=== PATIENT | female | born 1965 ===

== ENCOUNTER 2022-10-14 06:28 | Outpatient (REF) | payer OTHER, SELFPAY ==
[2022-10-14 07:58] LABS: Alanine Aminotransferase 12 U/L (0-31); Alkaline Phosphatase 72 U/L (39-117); Anion Gap 12 (12-20); Aspartate Amino Transferase 11 U/L (5-31); Bilirubin Total 0.6 mg/dL (0.0-1.0); Blood Urea Nitrogen 15 mg/dL (9-16); Calcium 9.4 mg/dL (8.4-10.2); Carbon Dioxide 25 mmol/L (22-29); Chloride 108 mmol/L (96-108); Cholesterol 270 mg/dL; Estimated Glomerular Filt Rate > 60; Glucose Fasting 91 mg/dL (60-99); HDL Cholesterol 52 mg/dL; LDL Cholesterol Calculated 197 mg/dl; Potassium 4.6 mmol/L (3.3-5.1); Sodium 140 mmol/L (135-145); Total Protein 6.5 g/dL (6.5-8.0); Triglycerides 109 mg/dL
[2022-10-14 08:03] LABS: Appearance Urine Cloudy; Color Urine Yellow; Glucose Urine UA Negative (Negative); Leukocyte Esterase Urine Small (1+) (Negative); Nitrite Urine Negative (Negative); PH 5.5 (5.0-9.0); UMIC TRIGGER UA YES; Urine Blood Trace (Negative); Urine Ketones Negative (Negative); Urine Protein Negative (Neg-Trace)
[2022-10-14 08:12] LABS: Bacteria Urine 2+ (None Seen); Hyaline Casts Urine 0-2 /LPF (0-2); RBC Urine 0-2 /HPF (0-2); WBC Urine 0-5 /HPF (0-5)
[2022-10-14 08:53] LABS: Microalbum/Creatinine Ratio Ur 4.4 ug/mg cr
[2022-10-14 09:01] LABS: TSH reflex Free T4 1.78 uIU/mL (0.32-4.0)
== END 2022-10-14 06:29 | disposition home or self-care (01) ==
LOC: HO.XRAY 06:28
PROVIDERS: PCP Family Medicine; Visit Provider Family Medicine
DX: Z00.00 Encounter for general adult medical examination without abnormal findings (principal); I10 Essential (primary) hypertension
CPT/HCPCS: 36415; 80053; 80061; 81001; 81003; 82043; 84443

== ENCOUNTER 2022-11-26 08:43 | Outpatient (REF) | payer OTHER, SELFPAY ==
--- NOTE | ~2022-11-26 | MM_ITS ---
EXAMINATION: MM SCREENING DIGITAL BREAST TOMOSYNTHESIS, BILATERAL CLINICAL INFORMATION: Screening. Asymptomatic. The lifetime risk of breast cancer based on the Tyrer-Cuzick Model is 14%. COMPARISON: Mammography: 08/18/2012, 06/08/2011 TECHNIQUE: Digital breast tomosynthesis is performed in both the craniocaudal and mediolateral oblique views along with computer-aided detection (CAD). Synthesized 2D images are generated from the tomosynthesis. FINDINGS: The breasts are heterogeneously dense, which may obscure small masses (ACR BI-RADS breast composition Category c). This tissue composition borders on extremely dense in the upper outer quadrants. There is no developing density or architectural abnormality. Parenchymal pattern is similar to prior studies. Some minor asymmetry posterior upper left breast on MLO view is stable. There is no significant mass. The axilla and skin contours are unremarkable. No abnormal calcifications on the left. Right breast has scattered regional calcifications retroareolar and upper outer quadrant, questionably increased since 2013. Patient will be recalled for magnification views to fully characterize. MM/MM tomosynthesis screening BI IMPRESSION: Right: -Regional calcifications retroareolar and upper outer quadrant, questionably increased from remote prior exam 2012. Left: -No mammographic evidence of malignancy. ASSESSMENT: BI-RADS 0: Incomplete - Need Additional Imaging Evaluation RECOMMENDATION: 1. Additional views right breast: Magnification CC retroareolar and outer; magnification ML right areola and upper). 2. Radiology department staff will contact the patient for additional imaging. This patient's information was entered into a reminder system with a target due date for their next mammogram.
== END 2022-11-26 08:44 | disposition home or self-care (01) ==
LOC: HO.MAMMO 08:43
PROVIDERS: Visit Provider Family Medicine
DX: Z12.31 Encounter for screening mammogram for malignant neoplasm of breast (principal)
CPT/HCPCS: 77063; 77067

== ENCOUNTER 2022-12-03 14:13 | Outpatient (REF) | payer OTHER, SELFPAY ==
--- NOTE | ~2022-12-03 | MM_ITS ---
EXAMINATION: MM DIAGNOSTIC DIGITAL MAMMOGRAPHY, RIGHT CLINICAL INFORMATION: Question increasing calcifications. COMPARISON: Mammography: 11/26/2022 and studies dating back to 09/15/2006. TECHNIQUE: Digital mammography is performed in the following views: Spot magnification views of the right breast in craniocaudal and 90 degree mediolateral views. FINDINGS: The breasts are extremely dense, which lowers the sensitivity of mammography (ACR BI-RADS breast composition Category d). There is multiplicity of scattered and grouped calcifications within the upper outer aspect of the right breast which appears similar to previous studies but difficult to directly compare due to lack of previous magnification views. Recommend 6 month follow up bilateral mammography with magnification views. Results are discussed with the patient at time of visit. MM/MM added views RT IMPRESSION: Probably stable right breast calcifications for six-month follow up study. ASSESSMENT: BI-RADS 3: Probably Benign. RECOMMENDATION: Diagnostic mammography in 6 months. This patient's information was entered into a reminder system with a target due date for their next mammogram.
== END 2022-12-03 14:14 | disposition home or self-care (01) ==
LOC: HO.MAMMO 14:13
PROVIDERS: PCP Family Medicine; Visit Provider Family Medicine
DX: R92.1 Mammographic calcification found on diagnostic imaging of breast (principal)
CPT/HCPCS: 77065

== ENCOUNTER 2023-03-01 10:47 | Outpatient (REF) | payer OTHER, SELFPAY ==
[2023-03-01 19:15] LABS: CT PCR NOT DETECTED (Not Detect.); NG PCR NOT DETECTED (Not Detect.)
[2023-03-04 02:59] LABS: HPV mRNA E6/E7 rflx Not Detected (Not Detected)
== END 2023-03-01 10:48 | disposition home or self-care (01) ==
LOC: HO.LNP 10:47
PROVIDERS: Visit Provider Advanced Practice Midwife
DX: Z01.419 Encounter for gynecological examination (general) (routine) without abnormal findings (principal); Z11.51 Encounter for screening for human papillomavirus (HPV); Z20.2 Contact with and (suspected) exposure to infections with a predominantly sexual mode of transmission; N84.1 Polyp of cervix uteri
CPT/HCPCS: 0353U; 87624; 88142; 99386

== ENCOUNTER 2023-03-01 10:47 | Outpatient (AMB) | payer OTHER, SELFPAY ==
--- NOTE | 2023-03-01 10:50 | A.OFFVIS_ITS ---
Intake Vital Signs 03/01/23 10:51 Height 5 ft 6 in Weight 171 lb BMI 27.6 BP 114/80 Intake Visit Reasons: New patient Annual Intake Note: Last pap 2019 normal history per patient The patient agreed to use of a medical record coder during this encounter. Scribed for ARGENIS Portillo by Haily Ferrer, medical record coder, on 03/01/2023 at 11:11 am EST. 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 No menses since her ablation years ago. Patient admits she tries to eat a healthy diet including Calcium and Vitamin D. She stays active with exercise. Currently sexually active. Denies vaginal itching and irritation. STD screening offered; she accepts. Denies family hx of colon and ovarian cancer. Reports getting follow up with breast care. Last pap smear 2019 per pt. Last mammogram 11/26/22. UTD with cologaurd. [facility] Medical History (Updated 03/01/23 @ 11:38 by Haily Ferrer) BRCA gene mutation negative in female Cervical polyp Potential exposure to STD High cholesterol Degenerative arthritis No pertinent past medical history Surgical History H/O foot surgery History of endometrial ablation Family History (Updated 03/01/23 @ 11:14 by Haily Ferrer) Mother Hypertension Breast cancer, Onset Age: 50 Maternal Grandmother High cholesterol Thyroid disorder Paternal Grandfather Diabetes Social History Household Members: Family Housing: House Alcohol intake: current Alcohol intake frequency: holidays/special occasions only Patient Tobacco Use Status: Former Tobacco user Tobacco use type: Cigarette e-Cigarette/Vaping Use: Never Used service: No Current occupational status: employed Sexual orientation: Straight/Heterosexual Gender identity: Female Female Reproductive History Menstrual Menopause type: natural Total pregnancies: 4 Full term: 3 Number of Living Children: 3 Ab spontaneous: 1 Date of Mammogram: 11/26/22 (Birad 0) Physical Exam Vital Signs: Last Vital Signs BP 114/80 03/01/23 10:51 BMI result Body Mass Index 27.6 Const General: cooperative, healthy appearing, no acute distress, well developed and alert Orientation/consciousness: patient oriented x3 HEENT Head: Yes normal to inspection Eyes General: appearance normal, both eyes and all related structures Neck Neck: Yes normal visual inspection Thyroid: Thyroid normal Chest Chest palpation & inspection: normal inspection of the chest Breast/axilla inspection: normal inspection of the breasts (no puckering, dimpling, peau de orange, retraction, discharge, masses) Breast/axilla palpation: normal palpation of the breasts Resp Effort & Inspection: normal respiratory effort GI Inspection: Yes normal to inspection Palpation (GI): Soft to palpation (to palpation) Rectal Exam - Female: deferred General: Yes bladder normal to inspection External Female Exam: normal external appearance and normal appearance of the urethra Speculum Exam - Vagina: normal appearance of the vagina, normal palpation and vagina atrophic Speculum Exam - Cervix: normal palpation and Other cervical findings present (cervical polyp palpable; bled slightly with pap) Bimanual exam- vagina & uterus: normal palpation and normal palpation Bimanual Exam- Adnexa, other: normal adnexae and no masses Skin General skin exam: no rashes or lesions noted Neuro General: patient oriented x3 Cognition (Neuro): normal cognition Extrem General: Yes normal to inspection Psych Attitude: cooperative Thought process: Normal thought process present Assessment & Plan Assessment & Plan (1) Encounter for well woman exam: Code(s): Z01.419 - Encounter for gynecological examination (general) (routine) without abnormal findings Plan: Discussed: Current recommendations for pap smears per ASCCP guidelines. Breast awareness and periodic self breast exams. Encouraged yearly mammograms. Maintaining a healthy lifestyle including a well balanced diet including Calcium and Vitamin D and routine exercise. Encouraged to use condoms for STD prevention. Encouraged patient to sign up for patient portal. Contact office with any PMB. All of her questions and concerns were addressed to the best of my ability. RTO in 1 year for AG. (2) Potential exposure to STD: Code(s): Z20.2 - Contact with and (suspected) exposure to infections with a predominantly sexual mode of transmission Plan: BV testing and GC/CT panel done today. Await results and treat accordingly. (3) Cervical polyp: Code(s): N84.1 - Polyp of cervix uteri Plan: Benign growth of tissue which grows in cervical canal. Recommended scheduling polypectomy so it does not develop any abnormal tissue. Orders: Orders CT NG by PCR Today Z20.2 - Contact with and (suspected) exposure to infections with a predominantly sexual mode of transmission Pap Smear Today Z01.419 - Encounter for gynecological examination (general) (routine) without abnormal findings Coding Level of Care Code New Pt Prev Care 40-64y(51769) Diagnoses Encounter for well woman exam Z01.419 Potential exposure to STD Z20.2 Cervical polyp N84.1
[2023-03-01 10:51] VITALS: BP 114/80; BMI 27.6
== END 2023-03-01 11:31 | disposition home or self-care (01) ==
PROVIDERS: Visit Provider Advanced Practice Midwife
DX: Z01.419 Encounter for gynecological examination (general) (routine) without abnormal findings (principal); Z20.2 Contact with and (suspected) exposure to infections with a predominantly sexual mode of transmission; N84.1 Polyp of cervix uteri
CPT/HCPCS: 99386

== ENCOUNTER 2023-03-03 11:07 | Outpatient (AMB) | payer OTHER, SELFPAY ==
[2023-03-03 11:13] VITALS: BP 124/84; BMI 27.6
--- NOTE | 2023-03-03 11:13 | A.OFFVIS_ITS ---
Intake Vital Signs 03/03/23 11:13 Height 5 ft 6 in Weight 171 lb BMI 27.6 BP 124/84 Intake Visit Reasons: Polypectomy/45 Intake Note: The patient agreed to use of a medical service technician during this encounter. Scribed for ARGENIS Portillo by Haily Ferrer medical service technician, on 03/03/2023 at 11:18 am EST. Kier Drier: Kier Drier Present ([place]) Allergies Penicillins Allergy (Mild, Verified 03/03/23 11:14) Hives doxycycline [DOXYCYCLINE] Allergy (Unknown, Verified 03/03/23 11:14) SWELLING Post menopausal: Yes HPI HPI Comments History of Present Illness Details She presents for polypectomy due to cervical polyp. See procedure note. [facility] Medical History BRCA gene mutation negative in female Cervical polyp Potential exposure to STD High cholesterol Degenerative arthritis No pertinent past medical history Surgical History H/O foot surgery History of endometrial ablation Family History Mother Hypertension Breast cancer, Onset Age: 50 Maternal Grandmother High cholesterol Thyroid disorder Paternal Grandfather Diabetes Social History Household Members: Family Housing: House Alcohol intake: current Alcohol intake frequency: holidays/special occasions only Patient Tobacco Use Status: Former Tobacco user Tobacco use type: Cigarette e-Cigarette/Vaping Use: Never Used service: No Current occupational status: employed Sexual orientation: Straight/Heterosexual Gender identity: Female Physical Exam Vital Signs: Last Vital Signs BP 124/84 03/03/23 11:13 BMI result Body Mass Index 27.6 Const General: cooperative, healthy appearing, comfortable, no acute distress, well developed, alert and awake Other: cervical polyp located at right side of cervix External Female Exam: normal external appearance and normal appearance of the urethra Speculum Exam - Vagina: normal appearance of the vagina and normal vaginal di scharge Office Procedures Cervical Polypectomy Details Details: HPI She presents for polypectomy due to cervical polyp. She was counseled regarding anticipatory guidance for the procedure including bleeding, pain, infection and scarring. She was consented for the procedure, and the consent forms were signed. She is agreeable to have the procedure today. All questions were answered. She denies any allergy to shellfish. Procedure The patient was placed in the dorsal lithotomy position and a sterile speculum was inserted. The procedure was completed under aseptic technique. The cervix was cleansed with a Betadine solution x 3 swabs. A small polyp was visualized at 6 o'clock and removed with Wiliam clamp by grasping base and twisting off. Minimal bleeding was observed. Patient tolerated procedure well. Removal of polyp performed today with no complications. Plan Instructions given to call if temp >100.4, flu like sx, abd pain, vaginal odor or heavy vaginal bleeding. No intimacy for 7 days until all bleeding stopping. Follow up pending results. CPT: 47281 - Cervical Polypectomy Assessment & Plan Assessment & Plan (1) Cervical polyp: Code(s): N84.1 - Polyp of cervix uteri Plan: Polypectomy done today. See procedure note. Orders: Orders Surgical Today N84.1 - Polyp of cervix uteri Coding Level of Care Code Procedure Only Diagnoses Cervical polyp N84.1 CPT Codes Details - CPT: 48558 - Cervical Polypectomy ([id number])
== END 2023-03-03 11:41 | disposition home or self-care (01) ==
PROVIDERS: PCP Family Medicine; Visit Provider Advanced Practice Midwife
DX: N84.1 Polyp of cervix uteri (principal)
CPT/HCPCS: 57500

== ENCOUNTER 2023-03-03 11:07 | Outpatient (REF) | payer OTHER, SELFPAY | END 2023-03-03 11:08 | disposition home or self-care (01) | LOC: HO.LAB 11:07 | PROVIDERS: PCP Family Medicine; Visit Provider Advanced Practice Midwife | DX: N84.1 Polyp of cervix uteri (principal) | CPT/HCPCS: 57500; 88305 ==

== ENCOUNTER 2023-06-14 10:53 | Outpatient (REF) | payer OTHER, SELFPAY ==
--- NOTE | ~2023-06-14 | MM_ITS ---
EXAMINATION: MM DIAGNOSTIC DIGITAL MAMMOGRAPHY, RIGHT CLINICAL INFORMATION: 6 month follow-up calcifications right breast, magnification views. COMPARISON: Mammography: Magnification views 12/03/2022. Mammography 11/26/2022. Otherwise, no prior magnification views are available for direct comparison. TECHNIQUE: Digital mammography is performed in the following views: Right CC and ML 2-D magnification views. FINDINGS: The breasts are extremely dense, which lowers the sensitivity of mammography (ACR BI-RADS breast composition Category d). There are scattered grouped rounded and smudgy calcifications without significant change from prior magnification views. Distribution is regional without evidence of suspicious distribution. There are no linear or branching forms. These do not appear changed in number nor morphology since 6 months prior. These remain probably benign. Recommend six-month interval diagnostic right mammography to include spot magnification views when the patient is due for bilateral mammography. MM/MM diagnostic mammo unilat RT IMPRESSION: There are no significant changes from prior study. 6 month interval right magnification views recommended to ensure stability. ASSESSMENT: BI-RADS BI-RADS 3 - Probably benign finding(s) - 6 month follow-up suggested RECOMMENDATION: 6 Month F/U This patient's information was entered into a reminder system with a target due date for their next mammogram.
== END 2023-06-14 10:54 | disposition home or self-care (01) ==
LOC: HO.MAMMO 10:53
PROVIDERS: PCP Family Medicine; Visit Provider Family Medicine
DX: R92.1 Mammographic calcification found on diagnostic imaging of breast (principal)
CPT/HCPCS: 77062; 77065

== ENCOUNTER → 2023-06-14 11:00 | Outpatient (BNV) | payer OTHER, SELFPAY | PROVIDERS: PCP Family Medicine; Visit Provider Radiology Diagnostic Radiology | DX: R92.1 Mammographic calcification found on diagnostic imaging of breast (principal) | CPT/HCPCS: 77065 ==

== ENCOUNTER 2023-12-26 10:54 | Outpatient (REF) | payer OTHER, SELFPAY ==
--- NOTE | ~2023-12-26 | MM_ITS ---
EXAMINATION: MM DIAGNOSTIC DIGITAL BREAST TOMOSYNTHESIS, BILATERAL CLINICAL INFORMATION: 6 month follow-up (second) for regional right breast calcifications upper outer quadrant and retroareolar. Patient due for bilateral screening. COMPARISON: Mammography: 06/14/2023, 12/03/2022, 11/26/2022 (BI-RADS 0), 08/18/2012, 06/08/2011; Additional comparison is made with more recent prior mammography from [place] dated 11/25/2018, 10/15/2017, and 10/02/2016. TECHNIQUE: Digital breast tomosynthesis is performed in both the craniocaudal and mediolateral oblique views along with computer-aided detection (CAD). Synthesized 2D images are generated from the tomosynthesis. In addition, 2-D spot magnification right CC and ML views were also obtained. FINDINGS: The breasts are heterogeneously dense, which may obscure small masses (ACR BI-RADS breast composition Category c). There are stable loosely grouped regional calcifications in the upper outer right breast and retroareolar region. There is been no significant interval change when compared with 12/03/2022 magnification views. No suspicious morphology is evident (i.e. branching, casting, linear forms). These remain probably benign and one-year interval follow-up recommended with standard magnification views. Otherwise, there are no suspicious masses, suspicious grouped calcifications, or areas of architectural distortion in either breast. The parenchymal pattern is stable from prior exams. There is no skin or axillary abnormality. MM/MM tomosynthesis diagnostic BI IMPRESSION: -There are no findings in either breast suspicious for malignancy. -There are stable regional calcifications without suspicious morphology in the upper outer and retroareolar right breast, with no changes from prior exams. These remain probably benign, and 1 year interval follow-up recommended to include standard magnification views. ASSESSMENT: BI-RADS BI-RADS 3 - Probably benign finding(s) - 12 month follow-up suggested RECOMMENDATION: 12 month diagnostic follow up Results were provided to the patient at time of visit by the technologist. This patient's information was entered into a reminder system with a target due date for their next mammogram.
== END 2023-12-26 10:55 | disposition home or self-care (01) ==
LOC: HO.MAMMO 10:54
PROVIDERS: PCP Family Medicine; Visit Provider Family Medicine
DX: R92.1 Mammographic calcification found on diagnostic imaging of breast (principal)
CPT/HCPCS: 77062; 77066

== ENCOUNTER → 2023-12-26 11:00 | Outpatient (BNV) | payer OTHER, SELFPAY | PROVIDERS: PCP Family Medicine; Visit Provider Radiology Diagnostic Radiology | DX: R92.1 Mammographic calcification found on diagnostic imaging of breast (principal) | CPT/HCPCS: 77062; 77066 ==

== ENCOUNTER 2024-03-13 09:16 | Outpatient (AMB) | payer OTHER, SELFPAY ==
--- NOTE | 2024-03-13 09:17 | MHC.OFFVIS ---
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 She is doing well with no concerns. Attempting to eat a healthy diet with calcium, no exercise with arm pain. Currently not sexually active. Denies any vaginal dryness or irritation. STI testing offered; she declined. Last pap smear; 2022. Last mammogram; 2023. Colonoscopy is UTD. Denies any family history of ovarian or colon cancer. FH breast cancer-mother. [facility] Medical History BRCA gene mutation negative in female Cervical polyp Potential exposure to STD High cholesterol Degenerative arthritis No pertinent past medical history Surgical History H/O foot surgery History of endometrial ablation Family History Mother Hypertension Breast cancer, Onset Age: 50 Maternal Grandmother High cholesterol Thyroid disorder Paternal Grandfather Diabetes Social History Household Members: Family Housing: House Alcohol intake: current Alcohol intake frequency: holidays/special occasions only Patient Tobacco Use Status: Former Tobacco user Tobacco use type: Cigarette e-Cigarette/Vaping Use: Never Used service: No Current occupational status: employed Sexual orientation: Straight/Heterosexual Gender identity: Female Female Reproductive History Menstrual Total pregnancies: 4 Full term: 3 Number of Living Children: 3 Ab spontaneous: 1 Date of last pap smear: 03/01/23 (neg pap and hpv) Date of Mammogram: 12/26/23 (Birad 3) Other: Cologard 10/2022 Review of Systems Const All systems reviewed & are unremarkable except as noted in HPI and below Reports as per HPI Eyes Reports no additional complaints ENT Reports no additional complaints Card Reports no additional complaints Resp Reports no additional complaints GI Reports as per HPI and Reports no additional complaints Reports as per HPI Musc Reports no additional complaints Skin/Breast Reports as per HPI Neuro Reports no additional complaints Psych Reports no additional complaints Endo Reports no additional complaints Shemar/Lymph Reports no additional complaints Aller/Immun Reports no additional complaints Physical Exam Vital Signs: Last Vital Signs BP 120/80 03/13/24 09:19 BMI result Body Mass Index 27.8 Const General: cooperative, healthy appearing, no acute distress, well developed and alert Orientation/consciousness: patient oriented x3 HEENT Head: Yes normal to inspection Eyes General: appearance normal, both eyes and all related structures Neck Neck: Yes normal visual inspection Thyroid: Thyroid normal Chest Chest palpation & inspection: normal inspection of the chest and other (no puckering, dimpling, peau de orange, retraction, discharge, masses) Breast/axilla inspection: normal inspection of the breasts Breast/axilla palpation: normal palpation of the breasts Resp Effort & Inspection: normal respiratory effort GI Inspection: Yes normal to inspection Palpation (GI): Soft to palpation Rectal Exam - Female: deferred General: Yes bladder normal to palpation External Female Exam: normal external appearance and normal appearance of the urethra Speculum Exam - Vagina: normal appearance of the vagina, normal palpation, normal vaginal discharge and vagina atrophic Speculum Exam - Cervix: normal appearance of the cervix and normal palpation Bimanual exam- vagina & uterus: normal bimanual exam, normal palpation, uterine size normal, bladder normal to palpation, normal palpation and non-tender Bimanual Exam- Adnexa, other: no masses Skin General skin exam: no rashes or lesions noted Rashes: no rashes Neuro General: patient oriented x3 Cognition (Neuro): normal cognition Extrem General: Yes normal to inspection Psych Attitude: cooperative Thought process: Normal thought process present Assessment & Plan Assessment & Plan (1) Encounter for well woman exam with routine gynecological exam: Code(s): Z01.419 - Encounter for gynecological examination (general) (routine) without abnormal findings Category: Medical Plan Discussed: Current recommendations for pap smears per ASCCP guidelines. Breast awareness, periodic self breast exams and yearly mammogram. Maintain a healthy lifestyle, well balanced diet including Calcium 1,200 mg and Vitamin D 600 IU daily, and routine exercise. Follow up with primary care regarding her shoulder-arm pain. Contact the office with any postmenopausal bleeding. Patient verbalizes understanding and agrees to the plan of care. She was given opportunity to ask questions and all questions were answered to the best of my ability. RTO in 1 year for annual senior product designer exam. This note is constructed using voice recognition software. While every effort has been made to ensure accuracy, gatehouse attendant errors may have been included. Coding Level of Care Code Est Pt Prev Care 40-64y(09458) Diagnoses Encounter for well woman exam with routine gynecological exam Z01.419
[2024-03-13 09:19] VITALS: BP 120/80; BMI 27.8
== END 2024-03-13 09:49 | disposition home or self-care (01) ==
PROVIDERS: PCP Family Medicine; Visit Provider Advanced Practice Midwife
DX: Z01.419 Encounter for gynecological examination (general) (routine) without abnormal findings (principal)
CPT/HCPCS: 99396

== ENCOUNTER → 2024-03-13 09:16 | Outpatient (BNVA) | payer OTHER, SELFPAY | PROVIDERS: PCP Family Medicine; Visit Provider Advanced Practice Midwife | DX: Z01.419 Encounter for gynecological examination (general) (routine) without abnormal findings (principal) | CPT/HCPCS: 99396 ==

== ENCOUNTER 2024-06-15 11:50 | Outpatient (AMB) | payer OTHER, SELFPAY ==
--- NOTE | 2024-06-15 12:59 | MHC.PC.OV ---
Vital Signs 06/15/24 13:03 Height 5 ft 6 in Weight 180 lb 6 oz BMI 29.1 BP 112/70 Blood Pressure Location Rt brachial Position Sitting Respiration 14 Pulse 91 Pulse Source Pulse Oximeter Temp 99.6 F Temp Source Oral Pulse Oximetry (%) 94 Oxygen Delivery Method Room Air Intake Visit Reasons: f/u for head shaking Intake Note: follow up for head shaking Allergies Penicillins Allergy (Mild, Verified 06/15/24 12:59) Hives doxycycline [DOXYCYCLINE] Allergy (Unknown, Verified 06/15/24 12:59) SWELLING Tobacco use date assessed: 11/19/22 HPI f/u for head shaking HPI Details 58 y/o female presents to f/u chronic conditions. Hx of HLD and had started her on artovastatin. No recent lipid panel to review. Has complaints of tremors of head and arms. Denies any FHx of tremors. Some R sided facial weakness. Denies any prior diagnosis of strokes but notes an episode of stroke like symptoms with severe R sided weakness. HPI Comments History of Present Illness Details Documentation assistance for Junior Cook MD, was provided by Shilo Archer,? Toolroom Helper on 06/15/2024 at 1:53 PM EST. I, Dr. Cook, have read, observed, and verified documentation. ?? [facility] Medical History BRCA gene mutation negative in female Cervical polyp Potential exposure to STD High cholesterol Degenerative arthritis No pertinent past medical history Surgical History H/O foot surgery History of endometrial ablation Family History Mother Hypertension Breast cancer, Onset Age: 50 Maternal Grandmother High cholesterol Thyroid disorder Paternal Grandfather Diabetes Social History Household Members: Family Housing: House Alcohol intake: current Alcohol intake frequency: holidays/special occasions only Patient Tobacco Use Status: Former Tobacco user Tobacco use type: Cigarette e-Cigarette/Vaping Use: Never Used service: No Current occupational status: employed Sexual orientation: Straight/Heterosexual Gender identity: Female Questionnaire PHQ-9 Over the last 2 weeks, how often have you been bothered by any of the following problems? 1. Little interest or pleasure in doing things: not at all 2. Feeling down, depressed, or hopeless: not at all 3. Trouble falling or staying asleep, or sleeping too much: not at all 4. Feeling tired or having little energy: not at all 5. Poor appetite or overeating: not at all 6. Feeling bad about yourself - or that you are a failure or have let yourself or your family down: not at all 7. Trouble concentrating on things, such as reading the newspaper or watching television: not at all 8. Moving or speaking so slowly that other people could have noticed. Or the opposite - being so fidgety or restless that you have been moving around a lot more than usual: not at all 9. Thoughts that you would be better off or of hurting yourself in some way: not at all Total score: 0 Source: Developed by Drs. Suresh Jean, Yulia Draper, Abhijeet Tobias and colleagues, with an educational muriel from [employer]. Thrive Questionnaire Date Thrive assessed: 05/23/24 I am a: Patient What is your living situation today?: I choose not to answer this question Within the past 12 months, did the food you bought not last and you didn't have the money to get more?: I choose not to answer this question Within the past 12 months, did you worry whether your food would run out before you got money to buy more?: I choose not to answer this question Do you have trouble paying for medicines?: I choose not to answer this question Do you have trouble getting transportation to medical appointments?: I choose not to answer this question Do you have trouble paying your heating and electricity bill?: I choose not to answer this question Do you have trouble taking care of your child, family member or friend?: I choose not to answer this question Do you have trouble with day-to-day activities such as bathing, preparing meals, shopping, managing finances, etc.?: I choose not to answer this question Are you currently unemployed and looking for a job?: I choose not to answer this question Are you interested in more education?: I choose not to answer this question Please select the resources that you would like help with: None Currently or been in a relationship where the following occur: I choose not to answer THRIVE Score: 0 AUDIT C Alcohol Use Questionnaire (AUDIT-C) 1. How often do you have a drink containing alcohol?: Monthly or less 2. How many drinks containing alcohol do you have on a typical day when you are drinking?: 1 or 2 3. How often do you have six or more drinks on one occasion?: Never Total Score: 1 JUAN-7 AMB Questionnaire JUAN-7 Date JUAN - 7 assessed: 08/10/22 Feeling nervous, anxious, or on edge: 0 = Not at all Not being able to stop or control worryin = Not at all Worrying too much about different things: 0 = Not at all Trouble relaxin = Not at all Being so restless that it is hard to sit still: 0 = Not at all Becoming easily annoyed or irritable: 0 = Not at all Feeling afraid as if something awful might happen: 0 = Not at all Total JUAN-7 score (0-4 normal; 5-9 mild; 10-14 moderate; 15-21 severe): 0 Source: Developed by Drs. Suresh Jean, Yulia Draper, Abhijeet Tobias and colleagues, with an educational muriel from [employer]. Review of Systems Const Denies chills, Denies fatigue, Denies fever(s), Denies headache(s) and Denies weakness ENT Denies dizziness and Denies headache(s) Card Denies chest pain, Denies lightheadedness, Denies dyspnea and Denies other (Palpitations) Resp Denies cough, Denies dyspnea, Denies wheezing and Denies other ( shortness of breath) Musc Denies numbness and Denies tingling Neuro Denies dizziness, Denies headache(s), Denies numbness, Denies tingling, Denies paresthesias and Denies weakness Psych Denies anxiety and Denies depression Endo Denies fatigue Aller/Immun Denies wheezing Physical exam (Primary Care) Vital Signs: Last Vital Signs Temp 99.6 F 06/15/24 13:03 Pulse 91 06/15/24 13:03 Resp 14 06/15/24 13:03 BP 112/70 06/15/24 13:03 Pulse Ox 94 06/15/24 13:03 Oxygen Delivery Method Room Air 06/15/24 13:03 BMI result Body Mass Index 29.1 Tobacco/Smoking Status: Tobacco use Status Tobacco use date assessed 11/19/22 06/15/24 12:59 Patient Tobacco Use Status Former Tobacco user 06/15/24 12:59 Tobacco use type Cigarette 06/15/24 12:59 e-Cigarette/Vaping Use Never Used 06/15/24 12:59 PHQ-9: PHQ-9 Score PHQ-9: Total score 0 06/15/24 13:27 Thrive Assessment: Date of Thrive Assessment Date Thrive assessed 05/23/24 06/15/24 12:59 Currently or been in a relationship where the following occur: I choose not to answer Const General: no acute distress and well developed Nutritional Appearance: well nourished Orientation/consciousness: patient oriented x3 HENMT Head: Yes normocephalic and Yes atraumatic Eyes General: appearance normal, both eyes and all related structures Pupils: Equal, round and reactive pupils present EOM: EOMs intact bilaterally Resp Effort & Inspection: normal respiratory effort Auscultation: clear to auscultation bilaterally Cardio Rate: regular rate Rhythm: regular rhythm Heart sounds: S1 normal heart sound present, S2 normal heart sound present, no gallops, no murmurs and no rubs Neuro General: patient oriented x3 and gait normal Cranial nerves: Yes Equal, round and reactive pupils present Psych Affect: normal affect Coding Level of Care Code Est Pt Level 3 (44184) Diagnoses Tremor R25.1 Right sided weakness R53.1 Hiatal hernia K44.9 Hematemesis K92.0 Assessment & Plan Assessment & Plan (1) Tremor: Code(s): R25.1 - Tremor, unspecified Category: Medical Plan: Rhythmic?tremor?of?head?and?arms Also?has?right-sided?facial?weakness?with?smile?and?some?right?finger & leg?weakness Patient?notes?distant?history?of?an?episode?stroke-like?symptoms?with?severe?right-sided?weakness?which?resolved Check?MRI Check?labs Will?follow-up?in?5?or?6?weeks?to?review (2) Right sided weakness: Code(s): R53.1 - Weakness Category: Medical Plan: As?above (3) Hiatal hernia: Code(s): K44.9 - Diaphragmatic hernia without obstruction or gangrene Category: Medical Plan: Patient?states?history?of?hiatal?hernia?and?hematemesis Referred?GI Has?been?using?more?ibuprofen?lately?and?I?advised?her?decrease?this. (4) Hematemesis: Code(s): K92.0 - Hematemesis Category: Medical Plan: As?above Orders: Orders TSH reflex Free T4 Today Z00.00 - Encounter for general adult medical examination without abnormal findings HIV Ab/Ag Today R25.1 - Tremor, unspecified, Z11.3 - Encounter for screening for infections with a predominantly sexual mode of transmission Comprehensive [place]. Panel Fast Today Z00.00 - Encounter for general adult medical examination without abnormal findings Complete Blood Count Auto Diff Today Z00.00 - Encounter for general adult medical examination without abnormal findings Vitamin B12 and Folate Today E53.8 - Deficiency of other specified B group vitamins Lyme IgG/IgM w/reflex to WB Today R25.1 - Tremor, unspecified Syphilis Screen Today R25.1 - Tremor, unspecified, Z11.3 - Encounter for screening for infections with a predominantly sexual mode of transmission MR head/brain w con Today R25.1 - Tremor, unspecified, R53.1 - Weakness Referrals Gastroenterology Referral K44.9 - Diaphragmatic hernia without obstruction or gangrene, K92.0 - Hematemesis
[2024-06-15 13:03] VITALS: BP 112/70; PULSE 91; RESP 14; TEMP 37.6; O2SAT 94; BMI 29.1
== END 2024-06-15 14:14 | disposition home or self-care (01) ==
PROVIDERS: PCP Family Medicine; Visit Provider Family Medicine
DX: R25.1 Tremor, unspecified (principal); R53.1 Weakness; K44.9 Diaphragmatic hernia without obstruction or gangrene; K92.0 Hematemesis

== ENCOUNTER → 2024-06-15 11:50 | Outpatient (BNVA) | payer OTHER, SELFPAY | PROVIDERS: PCP Family Medicine; Visit Provider Family Medicine ==

== ENCOUNTER 2024-06-15 14:05 | Outpatient (REF) | payer OTHER, SELFPAY ==
[2024-06-15 17:28] LABS: MANUAL DIFF FLAG NO
[2024-06-15 17:41] LABS: Basophils Percent Auto 0.5 % (0-2); Eosinophils Absolute Auto 0.1 X10*3/uL (0.0-0.4); Hematocrit 41.4 % (37.0-47.0); Hemoglobin 13.8 g/dl (12.0-16.0); Imm Gran Abs Auto 0.02 X10*3/uL (0.00-0.03); Imm Gran Pct Auto 0.3 % (0.0-0.4); Lymphocytes Absolute Auto 2.1 X10*3/uL (1.2-4.9); Lymphocytes Percent Auto 26.4 % (20-40); Mean Corpuscular HGB Conc 33.3 g/dl (31.0-35.0); Mean Corpuscular Hemoglobin 31.2 pg (27.0-33.0); Mean Corpuscular Volume 93.5 fL (80.0-98.0); Mean Platelet Volume 9.6 fL (9.4-12.3); Monocytes Absolute Auto 0.6 X10*3/uL (0.1-1.2); Monocytes Percent Auto 7.3 % (2-11); Neutrophils Absolute Auto 5.1 x10*3/uL (2.0-8.3); Neutrophils Percent Auto 64.5 % (45-73); Platelet Count 278 X10*3/uL (160-400); Red Blood Count 4.43 X10*6/uL (4.20-5.50); Red Cell Distribution Width 13.3 % (11.0-16.0); White Blood Count 7.8 X10*3/uL (4.8-10.8)
[2024-06-15 17:53] LABS: Alanine Aminotransferase 28 U/L (0-31); Albumin Level 4.1 g/dL (3.5-5.0); Alkaline Phosphatase 71 U/L (39-117); Anion Gap 11 (12-20); Aspartate Amino Transferase 20 U/L (5-31); Bilirubin Total 0.3 mg/dL (0.0-1.0); Blood Urea Nitrogen 14 mg/dL (9-16); Calcium 8.8 mg/dL (8.4-10.2); Carbon Dioxide 23 mmol/L (22-29); Chloride 110 mmol/L (96-108); Estimated Glomerular Filt Rate > 60; Glucose Fasting 108 mg/dL (60-99); Potassium 3.7 mmol/L (3.3-5.1); Sodium 140 mmol/L (135-145); Total Protein 7.1 g/dL (6.5-8.0)
[2024-06-15 18:12] LABS: TSH reflex Free T4 0.98 uIU/mL (0.32-4.0)
[2024-06-15 18:20] LABS: Vitamin B12 405 pg/mL (200-900)
[2024-06-16 03:47] LABS: Syphilis Screen Nonreactive (Nonreactive)
[2024-06-16 04:00] LABS: HIV AB/AG Nonreactive (Nonreactive); HIV Num 1 0.06 S/CO (0.00-0.99)
[2024-06-18 19:08] LABS: Lyme Abs Screen <0.90 index
== END 2024-06-15 14:06 | disposition home or self-care (01) ==
LOC: HO.WFDLDS 14:05
PROVIDERS: Visit Provider Family Medicine
DX: R25.1 Tremor, unspecified (principal); E53.8 Deficiency of other specified B group vitamins; R53.1 Weakness; K44.9 Diaphragmatic hernia without obstruction or gangrene; K92.0 Hematemesis; Z11.4 Encounter for screening for human immunodeficiency virus [HIV]; Z11.3 Encounter for screening for infections with a predominantly sexual mode of transmission; Z01.84 Encounter for antibody response examination
CPT/HCPCS: 36415; 80053; 82607; 82746; 84443; 85025; 86617; 86618; 86780; 87389; 99212

== ENCOUNTER → 2024-07-24 09:36 | Outpatient (BNVA) | payer OTHER, SELFPAY | PROVIDERS: PCP Family Medicine; Visit Provider Family Medicine | DX: R53.1 Weakness (principal); R25.1 Tremor, unspecified; R73.01 Impaired fasting glucose; E78.5 Hyperlipidemia, unspecified; Z86.73 Personal history of transient ischemic attack (TIA), and cerebral infarction without residual deficits | CPT/HCPCS: 99212 ==

== ENCOUNTER → 2024-07-24 10:24 | Outpatient (AMB) | payer OTHER, SELFPAY ==
--- NOTE | 2024-07-24 09:57 | MHC.PC.OV ---
Vital Signs 07/24/24 09:58 Height 5 ft 6 in Weight 182 lb 2 oz BMI 29.4 BP 106/60 Blood Pressure Location Lt brachial Position Sitting Respiration 12 Pulse 81 Pulse Source Pulse Oximeter Temp 98.2 F Temp Source Oral Intake Visit Reasons: f/u labs, MRI Intake Note: lab review Allergies Penicillins Allergy (Mild, Verified 07/24/24 09:58) Hives doxycycline [DOXYCYCLINE] Allergy (Unknown, Verified 07/24/24 09:58) SWELLING Tobacco use date assessed: 11/19/22 HPI f/u labs, MRI HPI Details 59 y/o female presents to f/u labs. MRI ordered regarding tremor in R-sided weakness. MRI has been scheduled. Labs drawn 06/15/24. Reviewed labs with pt. Elevated fasting glucose of 108. [facility] Medical History BRCA gene mutation negative in female Cervical polyp Potential exposure to STD High cholesterol Degenerative arthritis No pertinent past medical history Surgical History H/O foot surgery History of endometrial ablation Family History Mother Hypertension Breast cancer, Onset Age: 50 Maternal Grandmother High cholesterol Thyroid disorder Paternal Grandfather Diabetes Social History Household Members: Family Housing: House Alcohol intake: current Alcohol intake frequency: holidays/special occasions only Patient Tobacco Use Status: Former Tobacco user Tobacco use type: Cigarette e-Cigarette/Vaping Use: Never Used service: No Current occupational status: employed Sexual orientation: Straight/Heterosexual Gender identity: Female Questionnaire Thrive Questionnaire Date Thrive assessed: 06/15/24 I am a: Patient What is your living situation today?: I choose not to answer this question Within the past 12 months, did the food you bought not last and you didn't have the money to get more?: I choose not to answer this question Within the past 12 months, did you worry whether your food would run out before you got money to buy more?: I choose not to answer this question Do you have trouble paying for medicines?: I choose not to answer this question Do you have trouble getting transportation to medical appointments?: I choose not to answer this question Do you have trouble paying your heating and electricity bill?: I choose not to answer this question Do you have trouble taking care of your child, family member or friend?: I choose not to answer this question Do you have trouble with day-to-day activities such as bathing, preparing meals, shopping, managing finances, etc.?: I choose not to answer this question Are you currently unemployed and looking for a job?: I choose not to answer this question Are you interested in more education?: I choose not to answer this question Please select the resources that you would like help with: None Currently or been in a relationship where the following occur: I choose not to answer THRIVE Score: 0 JUAN-7 AMB Questionnaire JUAN-7 Date JUAN - 7 assessed: 08/10/22 Source: Developed by Drs. Suresh Jean, Yulia Draper, Abhijeet Tobias and colleagues, with an educational muriel from [employer]. Review of Systems Const Denies chills, Denies fatigue, Denies fever(s), Denies headache(s) and Denies weakness ENT Denies dizziness and Denies headache(s) Card Denies dyspnea Resp Denies cough, Denies dyspnea, Denies wheezing and Denies other (shortness of breath) Musc Denies numbness and Denies tingling Neuro Denies dizziness, Denies headache(s), Denies numbness, Denies tingling and Denies weakness Psych Denies anxiety and Denies depression Endo Denies fatigue Aller/Immun Denies wheezing Physical exam (Primary Care) Vital Signs: Last Vital Signs Temp 98.2 F 07/24/24 09:58 Pulse 81 07/24/24 09:58 Resp 12 07/24/24 09:58 BP 106/60 07/24/24 09:58 BMI result Body Mass Index 29.4 Tobacco/Smoking Status: Tobacco use Status Tobacco use date assessed 11/19/22 07/24/24 10:02 Patient Tobacco Use Status Former Tobacco user 07/24/24 10:02 Tobacco use type Cigarette 07/24/24 10:02 e-Cigarette/Vaping Use Never Used 07/24/24 10:02 Thrive Assessment: Date of Thrive Assessment Date Thrive assessed 06/15/24 07/24/24 10:02 Currently or been in a relationship where the following occur: I choose not to answer Const General: well developed; No acute distress Nutritional Appearance: well nourished Orientation/consciousness: patient oriented x3 [facility] Head: Yes normocephalic and Yes atraumatic Eyes General: appearance normal, both eyes and all related structures Pupils: Equal, round and reactive pupils present EOM: EOMs intact bilaterally Resp Effort & Inspection: normal respiratory effort Neuro General: patient oriented x3 and gait normal Cranial nerves: Yes Equal, round and reactive pupils present Psych Affect: normal affect Coding Level of Care Code Est Pt Level 4 (81489) Diagnoses Right sided weakness R53.1 Tremor R25.1 Elevated fasting glucose R73.01 Hyperlipidemia E78.5 History of CVA (cerebrovascular accident) Z86.73 Assessment & Plan Assessment & Plan (1) Right sided weakness: Code(s): R53.1 - Weakness Category: Medical Plan: Ongoing?tremor?and?mild?right-sided?weakness?in?59-year-old?patient?with?a?history?of?prior?stroke. Lab?work?is?unremarkable?except?for?mildly?elevated?fasting?blood?sugar-see?below, and?high?cholesterol?levels?prior?testing MRI?is?scheduled?for?next?week Will?follow-up?with?her?after?this (2) Tremor: Code(s): R25.1 - Tremor, unspecified Category: Medical Plan: As?above (3) Elevated fasting glucose: Code(s): R73.01 - Impaired fasting glucose Category: Medical Plan: Mildly?elevated?fasting?blood?sugar. Will?recheck?with?next?lab?draw (4) Hyperlipidemia: Code(s): E78.5 - Hyperlipidemia, unspecified Category: Medical Plan: Markedly?high?cholesterol?levels?at?prior?measurements Had?sent?a?script?for?atorvastatin?and?she?tolerated?this?but?says?that?when?the?script?ran?out?she?did?not?get?further?refills. I?have?given?her?a?new?script?with?refills?and?discussed?with?her?that?she?should?continue?this?medication?unless?let?her?know directly?that?I?want?to?his?continue?it. Will?recheck?lipids?next?lab?draw (5) History of CVA (cerebrovascular accident): Code(s): Z86.73 - Personal history of transient ischemic attack (TIA), and cerebral infarction without residual deficits Category: Medical Plan: Patient?recounts?history?of?CVA?or?TIA?with?right-sided?weakness?and?resumption?function?subsequently. Had?started?her?on?atorvastatin though?this?was?not?continued?in?resuming?this?today. We?discussed?secondary?prevention - she?resume?atorvastatin?and?start?aspirin?81?mg?daily.??No?history?of?GI bleeding.?Stop?aspirin if?any?adverse?effects?such?GI?bleeding. Medications: Changed From atorvastatin 40 mg PO BEDTIME 30 days 30 tabs 1RF To atorvastatin 40 mg PO BEDTIME 90 tabs 3RF 90 days
[2024-07-24 09:58] VITALS: BP 106/60; PULSE 81; RESP 12; TEMP 36.8; BMI 29.4
== END | disposition home or self-care (01) ==
PROVIDERS: PCP Family Medicine; Visit Provider Family Medicine
DX: R53.1 Weakness (principal); R25.1 Tremor, unspecified; R73.01 Impaired fasting glucose; E78.5 Hyperlipidemia, unspecified; Z86.73 Personal history of transient ischemic attack (TIA), and cerebral infarction without residual deficits

== ENCOUNTER → 2024-07-30 09:34 | Outpatient (BNV) | payer OTHER, SELFPAY | PROVIDERS: PCP Family Medicine; Visit Provider Radiology Diagnostic Radiology | DX: R53.1 Weakness (principal) | CPT/HCPCS: 70551 ==

== ENCOUNTER 2024-07-30 09:45 | Outpatient (REF) | payer OTHER, SELFPAY ==
--- NOTE | ~2024-07-30 | MR_ITS ---
CLINICAL HISTORY: R53.1 - Weakness MR Brain without gadolinium Comparison: None Findings: No restricted diffusion. No intracranial mass or hemorrhage. No midline shift. No hydrocephalus. Vascular flow voids are intact. Orbital contents are unremarkable. The sinuses and mastoid air cells are clear. No focal bone lesion. IMPRESSION: No acute findings. This document has been electronically signed by: Marissa Jack MD on 07/31/2024 08:27:24
== END 2024-07-30 09:46 | disposition home or self-care (01) ==
LOC: HO.MRI 09:45
PROVIDERS: PCP Family Medicine; Visit Provider Family Medicine
DX: R25.1 Tremor, unspecified (principal); R53.1 Weakness
CPT/HCPCS: 70551

== ENCOUNTER 2024-08-16 09:35 | Outpatient (AMB) | payer OTHER, SELFPAY ==
--- NOTE | 2024-08-16 10:13 | A.OFFPC_ITS ---
Vital Signs 08/16/24 10:22 Height 5 ft 6 in Weight 180 lb 2 oz BMI 29.1 BP 104/74 Blood Pressure Location Rt brachial Position Sitting Respiration 12 Pulse 80 Pulse Source Pulse Oximeter Temp 98.4 F Temp Source Oral Pulse Oximetry (%) 99 Oxygen Delivery Method Room Air Intake Visit Reasons: f/u MRI Intake Note: Patient is here today to follow up on mri results [place] Head Wet Process Required: No Allergies Penicillins Allergy (Mild, Verified 08/16/24 10:19) Hives doxycycline [DOXYCYCLINE] Allergy (Unknown, Verified 08/16/24 10:19) SWELLING Medication List - Last Reconciled 08/16/24 by Junior Cook MD atorvastatin 40 mg PO BEDTIME 90 days No Known Home Meds Tobacco use date assessed: 11/19/22 HPI f/u MRI HPI Details 59 y/o female presents to f/u tremor wit h R sided weakness in pt with hx of CVA. Had restarted her artovastatin. Started her on aspirin. Brain MRI 07/31/24 showed no acute findings. Reports L shoulder pain. HPI Comments History of Present Illness Details Documentation assistance for pal Cook MD, was provided by Shilo Archer,? [employer] Press Operator on 08/16/2024 at 10:40 AM EST. I, Dr. Cook, have read, observed, and verified documentation. ?? [facility] Medical History BRCA gene mutation negative in female Cervical polyp Potential exposure to STD High cholesterol Degenerative arthritis No pertinent past medical history Surgical History H/O foot surgery History of endometrial ablation Family History Mother Hypertension Breast cancer, Onset Age: 50 Maternal Grandmother High cholesterol Thyroid disorder Paternal Grandfather Diabetes Social History Household Members: Family Housing: House Alcohol intake: current Alcohol intake frequency: holidays/special occasions only Patient Tobacco Use Status: Former Tobacco user Tobacco use type: Cigarette e-Cigarette/Vaping Use: Never Used service: No Current occupational status: employed Sexual orientation: Straight/Heterosexual Gender identity: Female Questionnaire PHQ-9 Over the last 2 weeks, how often have you been bothered by any of the following problems? 54604 - PHQ-9 Billing: Patient declined-do not bill Source: Developed by Drs. Suresh Jean, Yulia Draper, Abhijeet Tobias and colleagues, with an educational muriel from [employer]. Thrive Questionnaire Date Thrive assessed: 06/15/24 I am a: Patient What is your living situation today?: I choose not to answer this question Within the past 12 months, did the food you bought not last and you didn't have the money to get more?: I choose not to answer this question Within the past 12 months, did you worry whether your food would run out before you got money to buy more?: I choose not to answer this question Do you have trouble paying for medicines?: I choose not to answer this question Do you have trouble getting transportation to medical appointments?: I choose not to answer this question Do you have trouble paying your heating and electricity bill?: I choose not to answer this question Do you have trouble taking care of your child, family member or friend?: I choose not to answer this question Do you have trouble with day-to-day activities such as bathing, preparing meals, shopping, managing finances, etc.?: I choose not to answer this question Are you currently unemployed and looking for a job?: I choose not to answer this question Are you interested in more education?: I choose not to answer this question Please select the resources that you would like help with: None Currently or been in a relationship where the following occur: I choose not to answer THRIVE Score: 0 JUAN-7 AMB Questionnaire JUAN-7 Date JUAN - 7 assessed: 08/10/22 Source: Developed by Drs. Suresh Jean, Yulia Draper, Abhijeet Tobias and colleagues, with an educational muriel from [employer]. Review of Systems Const Denies chills, Denies fatigue, Denies fever(s), Denies headache(s) and Denies weakness ENT Denies dizziness and Denies headache(s) Card Denies dyspnea Resp Denies cough, Denies dyspnea, Denies wheezing and Denies other (shortness of breath) Musc Details: L shoulder pain Denies numbness and Denies tingling Neuro Details: Tremor Denies dizziness, Denies headache(s), Denies numbness, Denies tingling and Denies weakness Psych Denies anxiety and Denies depression Endo Denies fatigue Aller/Immun Denies wheezing Physical exam (Primary Care) Vital Signs: Last Vital Signs Temp 98.4 F 08/16/24 10:22 Pulse 80 08/16/24 10:22 Resp 12 08/16/24 10:22 BP 104/74 08/16/24 10:22 Pulse Ox 99 08/16/24 10:22 Oxygen Delivery Method Room Air 08/16/24 10:22 BMI result Body Mass Index 29.1 Tobacco/Smoking Status: Tobacco use Status Tobacco use date assessed 11/19/22 08/16/24 10:15 Patient Tobacco Use Status Former Tobacco user 08/16/24 10:15 Tobacco use type Cigarette 08/16/24 10:15 e-Cigarette/Vaping Use Never Used 08/16/24 10:15 Thrive Assessment: Date of Thrive Assessment Date Thrive assessed 06/15/24 08/16/24 10:15 Currently or been in a relationship where the following occur: I choose not to answer Const General: well developed; No acute distress Nutritional Appearance: well nourished Orientation/consciousness: patient oriented x3 HENMT Head: Yes normocephalic and Yes atraumatic Eyes General: appearance normal, both eyes and all related structures Pupils: Equal, round and reactive pupils present EOM: EOMs intact bilaterally Resp Effort & Inspection: normal respiratory effort Neuro General: patient oriented x3 and gait normal Cranial nerves: Yes Equal, round and reactive pupils present Psych Affect: normal affect Coding Level of Care Code Est Pt Level 4 (62912) Diagnoses Left shoulder pain M25.512 Tremor R25.1 Right sided weakness R53.1 History of CVA (cerebrovascular accident) Z86.73 Assessment & Plan Assessment & Plan (1) Left shoulder pain: Code(s): M25.512 - Pain in left shoulder Category: Medical Plan: Left?shoulder?pain some?numbness?and?paresthesias?as?well?as?mild?weakness. Check?x-ray?of?left?shoulder?and?cervical?spine Will?refer?to?Neurology?for cervical?radiculopathy.?? (2) Tremor: Code(s): R25.1 - Tremor, unspecified Category: Medical Plan: Ongoing?tremor?and?some?right-sided?weakness. h/o CVA MRI?head/brain?is?unremarkable. As?above,?patient?is?referred?to?neurology (3) Right sided weakness: Code(s): R53.1 - Weakness Category: Medical Plan: As?above (4) History of CVA (cerebrovascular accident): Code(s): Z86.73 - Personal history of transient ischemic attack (TIA), and cerebral infarction without residual deficits Category: Medical Plan: As above Orders: Orders XR shoulder LT min 2V Today M25.512 - Pain in left shoulder XR cervical spine 2V Today M25.512 - Pain in left shoulder, M54.2 - Cervicalgia Referrals Neurology Referral M54.12 - Radiculopathy, cervical region, R20.0 - Anesthesia of skin, R20.2 - Paresthesia of skin, R25.1 - Tremor, unspecified, Z86.73 - Personal history of transient ischemic attack (TIA), and cerebral infarction without residual deficits
[2024-08-16 10:22] VITALS: BP 104/74; PULSE 80; RESP 12; TEMP 36.9; O2SAT 99; BMI 29.1
== END 2024-08-16 11:15 | disposition home or self-care (01) ==
PROVIDERS: PCP Family Medicine; Visit Provider Family Medicine
DX: M25.512 Pain in left shoulder (principal); R25.1 Tremor, unspecified; R53.1 Weakness; Z86.73 Personal history of transient ischemic attack (TIA), and cerebral infarction without residual deficits

== ENCOUNTER → 2024-08-16 09:35 | Outpatient (BNVA) | payer OTHER, SELFPAY | PROVIDERS: PCP Family Medicine; Visit Provider Family Medicine | DX: M25.512 Pain in left shoulder (principal); R25.1 Tremor, unspecified; R53.1 Weakness; Z86.73 Personal history of transient ischemic attack (TIA), and cerebral infarction without residual deficits | CPT/HCPCS: 99212 ==

== ENCOUNTER 2024-08-20 13:05 | Outpatient (REF) | payer OTHER, SELFPAY ==
--- NOTE | ~2024-08-20 | XR_ITS ---
CLINICAL HISTORY: M25.512 - Pain in left shoulder 4 views cervical spine Comparison: None Findings: No fractures or listhesis. Odontoid and lateral masses intact. Mild degenerative facet arthropathy throughout. Mild disc space narrowing C5-6 with anterior vertebral body osteophytes. Uncinate and transverse processes intact. Lordotic curvature is preserved. Normal bone mineralization. No widening of the retropharyngeal soft tissues. Lung apices unremarkable. Impression: 1. No fractures or listhesis. 2. Degenerative spondylosis This document has been electronically signed by: Suhk Morales MD on 08/22/2024 10:01:04
--- NOTE | ~2024-08-20 | XR_ITS ---
CLINICAL HISTORY: M25.512 - Pain in left shoulder 5 view left shoulder Comparison: None Findings: Normal congruency of the glenohumeral joint. Mild AC joint arthrosis no undersurface spurring No fractures or bony erosions. No greater tuberosity cysts. Normal bone mineralization and soft tissues. No radiopaque foreign body. Normal visualized left chest. Impression: 1. No fracture, subluxations or dislocations left shoulder. 2. Mild AC joint arthrosis no undersurface spurring. This document has been electronically signed by: Sukh Morales MD on 08/22/2024 10:05:28
== END 2024-08-20 13:06 | disposition home or self-care (01) ==
LOC: HO.XRAY 13:05
PROVIDERS: PCP Family Medicine; Visit Provider Family Medicine
DX: M25.512 Pain in left shoulder (principal); M54.2 Cervicalgia
CPT/HCPCS: 72040; 73030

== ENCOUNTER → 2024-08-20 13:15 | Outpatient (BNV) | payer OTHER, SELFPAY | PROVIDERS: PCP Family Medicine; Visit Provider Radiology Diagnostic Radiology | DX: M47.812 Spondylosis without myelopathy or radiculopathy, cervical region (principal); M25.512 Pain in left shoulder | CPT/HCPCS: 72040; 73030 ==

== ENCOUNTER 2024-08-30 07:53 | Outpatient (AMB) | payer OTHER, SELFPAY ==
--- NOTE | 2024-08-30 08:06 | MHC.PC.OV ---
Vital Signs 08/30/24 08:10 Height 5 ft 6 in Weight 181 lb BMI 29.2 BP 128/72 Blood Pressure Location Rt brachial Position Sitting Pulse 65 Pulse Source Pulse Oximeter Pulse Oximetry (%) 95 Oxygen Delivery Method Room Air Intake Visit Reasons: Physical Intake Note: Physical Feltmaker Required: No Allergies Penicillins Allergy (Mild, Verified 08/30/24 08:06) Hives doxycycline [DOXYCYCLINE] Allergy (Unknown, Verified 08/30/24 08:06) SWELLING Medication List - Last Reconciled 08/30/24 by Nidhi Leon PA-C atorvastatin 40 mg PO BEDTIME 90 days No Known Home Meds Tobacco use date assessed: 08/30/24 HPI Physical HPI Details Patient is a 59-year-old female who presents today for a physical exam. She is a patient of Dr. Cook and normally follows with him. She has a history CVA, elevated fasting glucose, hyperlipidemia and smoking. She has a list of concerns today with her. She states that they told her to bring in all of her concerns to her physical as it was a total body exam. Derm: States that she has a new skin lesion on her anterior neck. It is flesh-colored and it has been there for the last month or so. She states that it is not itchy or bothersome but she would like this looked at by Dermatology. -she also reports a lump on her left mid back that has been there for years. At times it was uncomfortable. She states that it has grown in size. It has been looked at and she states she was told that this is a fatty deposit but it makes her worried because it is tender at times and has grown. She would like this evaluated. Musculoskeletal: States that she has pain in her hands, elbows and knees. The pain in her hands is the worse. She states that her hands are starting to look arthritic and a little changed. At times they swell. This has been going on for years but has been worse the last 6 months. She has a hard time gripping things because of the pain. She finds herself dropping things. She does get numbness and tingling in his following with neurology for this but has not had the hands in the pain looked at. She does not like the idea of having to take medications but wants to know what is going on. No known tick bites. No joint erythema, fevers or chills. There was no trauma. CV: Blood pressure today in the office is. She recently restarted her atorvastatin 40 mg a couple of months ago. Last lipids were in 2022. Overdue for labs. Endo: Denies any polyuria or polydipsia. Blood sugars have been a little elevated fasting <110. Overdue A1c Neuro: has a hx of prior cva, stable on aspirin and statin. has f/u with neurology and has followed with pcp for this as well. recent brain mri unremarkable. GI: Has nausea and vomiting every day. Has an appointment coming up with GI on 10/08. No weight changes recently. She also reports that sometimes when she eats she gets a tingling/burning sensation to the posterior scalp. She states that it is in a circular distribution and then does resolve spontaneously. There is no associated rash or weakness. She has not tried to keep a food journal to see if it is associated with anything in particular. Former smoker- smoked for 15 years. She is leaving to go see grandchildren this month in [place]. Mammo: UTD 12/26/23 Pap: UTD lead tinner- follows with [facility] Bone density: never had, has not had menses since age 37 Colonoscopy: 2022- cologuard negative [facility] Medical History BRCA gene mutation negative in female Cervical polyp Potential exposure to STD High cholesterol Degenerative arthritis No pertinent past medical history Surgical History H/O foot surgery History of endometrial ablation Family History Mother Hypertension Breast cancer, Onset Age: 50 Maternal Grandmother High cholesterol Thyroid disorder Paternal Grandfather Diabetes Social History (Updated 08/30/24 @ 08:13 by Alexandra Hathaway CMA) Household Members: Family Housing: House Alcohol intake: current Alcohol intake frequency: holidays/special occasions only Patient Tobacco Use Status: Former Tobacco user Tobacco use type: Cigarette e-Cigarette/Vaping Use: Never Used Use of substances other than those prescribed or required for medical reasons: No service: No Current occupational status: employed Sexual orientation: Straight/Heterosexual Gender identity: Female Questionnaire PHQ-9 Over the last 2 weeks, how often have you been bothered by any of the following problems? 1. Little interest or pleasure in doing things: not at all 2. Feeling down, depressed, or hopeless: not at all 3. Trouble falling or staying asleep, or sleeping too much: not at all 4. Feeling tired or having little energy: not at all 5. Poor appetite or overeating: not at all 6. Feeling bad about yourself - or that you are a failure or have let yourself or your family down: not at all 7. Trouble concentrating on things, such as reading the newspaper or watching television: not at all 8. Moving or speaking so slowly that other people could have noticed. Or the opposite - being so fidgety or restless that you have been moving around a lot more than usual: not at all 9. Thoughts that you would be better off or of hurting yourself in some way: not at all Total score: 0 Depression Screening Interpretation: Negative Depression Screening Done: Yes 75067 - PHQ-9 Billing: Yes Source: Developed by Drs. Suresh Jean, Yulia Draper, Abhijeet Tobias and colleagues, with an educational muriel from [employer]. Thrive Questionnaire Date Thrive assessed: 06/15/24 I am a: Patient What is your living situation today?: I choose not to answer this question Within the past 12 months, did the food you bought not last and you didn't have the money to get more?: I choose not to answer this question Within the past 12 months, did you worry whether your food would run out before you got money to buy more?: I choose not to answer this question Do you have trouble paying for medicines?: I choose not to answer this question Do you have trouble getting transportation to medical appointments?: I choose not to answer this question Do you have trouble paying your heating and electricity bill?: I choose not to answer this question Do you have trouble taking care of your child, family member or friend?: I choose not to answer this question Do you have trouble with day-to-day activities such as bathing, preparing meals, shopping, managing finances, etc.?: I choose not to answer this question Are you currently unemployed and looking for a job?: I choose not to answer this question Are you interested in more education?: I choose not to answer this question Please select the resources that you would like help with: None Currently or been in a relationship where the following occur: I choose not to answer THRIVE Score: 0 JUAN-7 AMB Questionnaire JUAN-7 Date JUAN - 7 assessed: 08/30/24 Feeling nervous, anxious, or on edge: 0 = Not at all Not being able to stop or control worryin = Not at all Worrying too much about different things: 0 = Not at all Trouble relaxin = Not at all Being so restless that it is hard to sit still: 0 = Not at all Becoming easily annoyed or irritable: 0 = Not at all Feeling afraid as if something awful might happen: 0 = Not at all Total JUAN-7 score (0-4 normal; 5-9 mild; 10-14 moderate; 15-21 severe): 0 Source: Developed by Drs. Suresh Jean, Yulia Draper, Abhijeet Tobias and colleagues, with an educational muriel from [employer]. JUAN-7 Assessment Billing JUAN-7 Assessment Tool: JUAN-7 Assessment 65518 Physical exam (Primary Care) Vital Signs: Last Vital Signs Pulse 65 08/30/24 08:10 BP 128/72 08/30/24 08:10 Pulse Ox 95 08/30/24 08:10 Oxygen Delivery Method Room Air 08/30/24 08:10 BMI result Body Mass Index 29.2 Tobacco/Smoking Status: Tobacco use Status Tobacco use date assessed 08/30/24 08/30/24 08:13 Patient Tobacco Use Status Former Tobacco user 08/30/24 08:13 Tobacco use type Cigarette 08/30/24 08:13 e-Cigarette/Vaping Use Never Used 08/30/24 08:13 Depression Screening Interpretation: Negative Thrive Assessment: Date of Thrive Assessment Date Thrive assessed 06/15/24 08/30/24 08:06 Currently or been in a relationship where the following occur: I choose not to answer Const Orientation/consciousness: patient oriented x3 HENMT Ears: hearing grossly normal bilaterally and TM's normal bilaterally General nose exam: No nasal polyps present Face and sinus: Yes sinuses nontender Mouth: Normal oral and palatal mucosa present Eyes Pupils: Equal, round and reactive pupils present EOM: EOMs intact bilaterally Neck Neck: Yes full ROM and Yes no lymphadenopathy Thyroid: Thyroid normal Chest Chest palpation & inspection: normal inspection of the chest Resp Auscultation: clear to auscultation bilaterally Cardio Rate: regular rate Rhythm: regular rhythm Heart sounds: S1 normal heart sound present and S2 normal heart sound present Peripheral pulses: Peripheral pulses 2+ throughout GI Other: Soft, nontender Auscultation: normal bowel sounds Rectal Exam - Female: deferred General: Yes no CVA tenderness Back/Spine/Pelvis Other: There is an approximately 4 in x 4 in mobile, subcutaneous lump noted on the left mid back, nontender Back: no CVA tenderness Cervical Spine: cervical ROM normal Thoracic/Lumbar Spine: thoraco-lumbar ROM normal and No paraspinal muscle tenderness Skin General skin exam: no rashes or lesions noted Neuro General: patient oriented x3, gait normal, CN's II-XI intact bilaterally and deep tendon reflexes 2+ bilaterally Cranial nerves: Yes Equal, round and reactive pupils present Motor exam (neuro): 5/5 motor strength present throughout Sensory Exam: double simultaneous stimulation for sensation normal Coordination: [id number] test normal and Romberg test negative Extrem General: Yes normal to inspection and Yes full ROM Psych Affect: normal affect Attitude: cooperative Thought process: Normal thought process present Thought content: Normal thought content present Insight: Good insight present (Psych) Judgement: Good judgement present (Psych) Coding Level of Care Code Est Pt Level 3 (19466) Est Pt Prev Care 40-64y(84939) Diagnoses Adult general medical exam Z00.00 Hyperlipidemia E78.5 Elevated fasting glucose R73.01 Skin lesion of neck L98.9 Polyarthralgia M25.50 Bilateral hand pain M79.641; M79.642 Lump of skin of back R22.2 Additional Codes JUAN-7 Assessment Billing - JUAN-7 Assessment Tool: JUAN-7 Assessment 58693 ([id number]) PHQ-9 - 90971 - PHQ-9 Billing: Yes ([id number]) Assessment & Plan Assessment & Plan (1) Adult general medical exam: Code(s): Z00.00 - Encounter for general adult medical examination without abnormal findings Category: Medical Plan: Health maintenance reviewed. Bone density ordered. Labs ordered. (2) Hyperlipidemia: Code(s): E78.5 - Hyperlipidemia, unspecified Category: Medical Plan: Lipids and LFTs ordered. Continue atorvastatin 20 mg (3) Elevated fasting glucose: Code(s): R73.01 - Impaired fasting glucose Category: Medical Plan: A1c ordered (4) Skin lesion of neck: Code(s): L98.9 - Disorder of the skin and subcutaneous tissue, unspecified Category: Medical Plan: Referral to dermatology. (5) Polyarthralgia: Code(s): M25.50 - Pain in unspecified joint Category: Medical Plan: Arthritis labs ordered X-rays of the hands ordered Referral to rheumatology Advised short term follow up with PCP in 3 months. (6) Bilateral hand pain: Code(s): M79.641 - Pain in right hand; M79.642 - Pain in left hand Category: Medical Plan: As above. (7) Lump of skin of back: Code(s): R22.2 - Localized swelling, mass and lump, trunk Category: Medical Plan: Discussed that physical exam is reassuring for a lipoma. Ultrasound ordered. We will follow up pending test results. Offered consultation to General surgery but she is going to wait on this. Orders: Orders Complete Blood Count Auto Diff Today E78.5 - Hyperlipidemia, unspecified, R73.01 - Impaired fasting glucose, Z00.00 - Encounter for general adult medical examination without abnormal findings Comprehensive [place]. Panel Fast Today E78.5 - Hyperlipidemia, unspecified, R73.01 - Impaired fasting glucose, Z00.00 - Encounter for general adult medical examination without abnormal findings Hemoglobin A1c Today E78.5 - Hyperlipidemia, unspecified, R73.01 - Impaired fasting glucose, Z00.00 - Encounter for general adult medical examination without abnormal findings Lipid Panel Today E78.5 - Hyperlipidemia, unspecified, R73.01 - Impaired fasting glucose, Z00.00 - Encounter for general adult medical examination without abnormal findings TSH reflex Free T4 Today E78.5 - Hyperlipidemia, unspecified, R73.01 - Impaired fasting glucose, Z00.00 - Encounter for general adult medical examination without abnormal findings UA CC w/rflx Micro + Cult Today E78.5 - Hyperlipidemia, unspecified, R73.01 - Impaired fasting glucose, Z00.00 - Encounter for general adult medical examination without abnormal findings, Z13.220 - Encounter for screening for lipoid disorders XR DEXA axial skeleton Today N95.1 - Menopausal and female climacteric states Erythrocyte Sedimentation Rate Today M25.50 - Pain in unspecified joint, M79.641 - Pain in right hand, M79.642 - Pain in left hand MERCEDES Reflex Titer and Pattern Today M25.50 - Pain in unspecified joint, M79.641 - Pain in right hand, M79.642 - Pain in left hand Rheumatoid Factor Today M25.50 - Pain in unspecified joint, M79.641 - Pain in right hand, M79.642 - Pain in left hand Lyme IgG/IgM w/reflex to WB Today M25.50 - Pain in unspecified joint, M79.641 - Pain in right hand, M79.642 - Pain in left hand XR Hand Bilat min 3v Today M79.641 - Pain in right hand, M79.642 - Pain in left hand US chest Today R22.2 - Localized swelling, mass and lump, trunk Referrals Rheumatology Referral M25.50 - Pain in unspecified joint, M79.641 - Pain in right hand, M79.642 - Pain in left hand Dermatology Referral L98.9 - Disorder of the skin and subcutaneous tissue, unspecified
[2024-08-30 08:10] VITALS: BP 128/72; PULSE 65; O2SAT 95; BMI 29.2
== END 2024-08-30 13:49 | disposition home or self-care (01) ==
LOC: HO.HMCFM 07:54
PROVIDERS: PCP Physician Assistant; Visit Provider Physician Assistant
DX: Z00.00 Encounter for general adult medical examination without abnormal findings (principal); E78.5 Hyperlipidemia, unspecified; R73.01 Impaired fasting glucose; L98.9 Disorder of the skin and subcutaneous tissue, unspecified; M25.50 Pain in unspecified joint; M79.641 Pain in right hand; M79.642 Pain in left hand; R22.2 Localized swelling, mass and lump, trunk

== ENCOUNTER → 2024-08-30 07:53 | Outpatient (BNVA) | payer OTHER, SELFPAY | PROVIDERS: PCP Physician Assistant; Visit Provider Physician Assistant | DX: Z00.00 Encounter for general adult medical examination without abnormal findings (principal); E78.5 Hyperlipidemia, unspecified; R73.01 Impaired fasting glucose; L98.9 Disorder of the skin and subcutaneous tissue, unspecified; M25.50 Pain in unspecified joint; M79.641 Pain in right hand; M79.642 Pain in left hand; R22.2 Localized swelling, mass and lump, trunk | CPT/HCPCS: 96127; 99212; 99396 ==

== ENCOUNTER 2024-09-04 07:48 | Outpatient (REF) | payer OTHER, SELFPAY ==
--- NOTE | ~2024-09-04 | XR_ITS ---
EXAMINATION: XR HAND/WRIST, RIGHT XR HAND/WRIST, LEFT CLINICAL INFORMATION: M79.641 - Pain in right hand COMPARISON: None TECHNIQUE: PA, oblique, and [place] views of the each hand and wrist. FINDINGS: RIGHT HAND/WRIST: No fracture, dislocation, or suspicious bone lesion. Normal mineralization. No periarticular osteopenia or erosions. Normal alignment. Severe osteoarthritis at the first CMC joint, with periarticular spurs and calcifications. Moderate degenerative changes at the STT joints. Joint spaces are otherwise well-preserved. No soft tissue abnormalities. LEFT HAND/WRIST: No fracture, dislocation, or suspicious bone lesion. Normal mineralization. No periarticular osteopenia or erosions. Normal alignment. Severe osteoarthritis at the first CMC joint, with periarticular spurs and calcifications. Moderate degenerative changes at the STT joints. Joint spaces are otherwise well-preserved. No soft tissue abnormalities. XR/XR Hand Bilat min 3v IMPRESSION: 1. Severe degenerative arthritis in the first CMC and STT joints bilaterally, slightly more significant on the right. 2. No evidence of inflammatory arthropathy identified. Electronically signed by: Terry Balderrama MD 09/05/2024 01:31 PM EDT
--- NOTE | ~2024-09-04 | US_ITS ---
CLINICAL HISTORY: R22.2 - Localized swelling, mass and lump, trunk ULTRASOUND UPPER BACK Comparison: None Findings: Targeted assessment of the palpable area of concern was performed. Multiple images are labeled ???left upper back lump.??? There is a heterogeneous mildly hyperechoic well-circumscribed mass which measures 4.6 x 1.4 x 5.5 cm (Length x Height x Width). No significant intralesional or perilesional color flow. No posterior acoustic shadowing. Impression: 1. 4.6 x 1.4 x 1.5 cm mass corresponds as palpated with sonographic appearance suggestive of a lipoma. Suggest repeat imaging if there is significant change in the size and appearance of the lesion. This document has been electronically signed by: Coby Quintero DO on 09/05/2024 13:29:30
[2024-09-04 08:24] LABS: MANUAL DIFF FLAG NO
[2024-09-04 08:58] LABS: Basophils Absolute Auto 0.1 X10*3/uL (0.0-0.2); Basophils Percent Auto 0.7 % (0-2); Eosinophils Absolute Auto 0.2 X10*3/uL (0.0-0.4); Eosinophils Percent Auto 1.8 % (0-4); Hematocrit 42.5 % (37.0-47.0); Hemoglobin 14.6 g/dl (12.0-16.0); Imm Gran Abs Auto 0.03 X10*3/uL (0.00-0.03); Imm Gran Pct Auto 0.3 % (0.0-0.4); Lymphocytes Absolute Auto 2.5 X10*3/uL (1.2-4.9); Mean Corpuscular HGB Conc 34.4 g/dl (31.0-35.0); Mean Corpuscular Hemoglobin 31.9 pg (27.0-33.0); Mean Platelet Volume 8.9 fL (9.4-12.3); Monocytes Absolute Auto 0.5 X10*3/uL (0.1-1.2); Monocytes Percent Auto 5.4 % (2-11); Neutrophils Percent Auto 64.8 % (45-73); Platelet Count 309 X10*3/uL (160-400); Red Blood Count 4.57 X10*6/uL (4.20-5.50); Red Cell Distribution Width 12.8 % (11.0-16.0); White Blood Count 9.2 X10*3/uL (4.8-10.8)
[2024-09-04 09:13] LABS: Appearance Urine Clear; Color Urine Yellow; Glucose Urine UA Negative (Negative); Leukocyte Esterase Urine Negative (Negative); Nitrite Urine Negative (Negative); Specific Gravity - Urine 1.015 (1.005-1.025); UMIC TRIGGER UACC YES; Urine Blood Small (1+) (Negative); Urine Ketones Negative (Negative); Urine Protein Negative (Neg-Trace)
[2024-09-04 09:26] LABS: Estimated Average Glucose 117 mg/dL; Hemoglobin A1c % 5.7 % (<6.0)
[2024-09-04 09:34] LABS: Bacteria Urine Trace (None Seen); Hyaline Casts Urine 0-2 /LPF (0-2); RBC Urine 0-2 /HPF (0-2); WBC Urine 0-5 /HPF (0-5)
[2024-09-04 09:34] LABS: Erythrocyte Sedimentation Rate 6 MM/HR (0-20)
[2024-09-04 09:53] LABS: Alanine Aminotransferase 18 U/L (0-31); Albumin Level 4.1 g/dL (3.5-5.0); Alkaline Phosphatase 72 U/L (39-117); Anion Gap 9 (12-20); Aspartate Amino Transferase 17 U/L (5-31); Bilirubin Total 0.5 mg/dL (0.0-1.0); Blood Urea Nitrogen 13 mg/dL (9-16); Calcium 9.3 mg/dL (8.4-10.2); Carbon Dioxide 25 mmol/L (22-29); Chloride 113 mmol/L (96-108); Cholesterol 172 mg/dL (<200); Estimated Glomerular Filt Rate > 60; Glucose Fasting 99 mg/dL (60-99); HDL Cholesterol 58 mg/dL (>40); LDL Cholesterol Calculated 101 mg/dL (<100); Potassium 4.5 mmol/L (3.3-5.1); Sodium 142 mmol/L (135-145); Total Protein 6.9 g/dL (6.5-8.0); Triglycerides 66 mg/dL (<150)
[2024-09-04 09:54] LABS: TSH reflex Free T4 0.99 uIU/mL (0.32-4.0)
[2024-09-04 10:09] LABS: Rheumatoid Factor < 13.0 IU/mL (<15.0)
[2024-09-05 07:53] LABS: Lyme Abs Screen <0.90 index
[2024-09-07 14:08] LABS: Anti Nuclear Antibody Screen NEGATIVE (NEGATIVE)
== END 2024-09-04 07:49 | disposition home or self-care (01) ==
LOC: HO.US 07:48
PROVIDERS: PCP Physician Assistant; Visit Provider Physician Assistant
DX: Z00.00 Encounter for general adult medical examination without abnormal findings (principal); M79.641 Pain in right hand; M79.642 Pain in left hand; M25.50 Pain in unspecified joint; R73.01 Impaired fasting glucose; E78.5 Hyperlipidemia, unspecified; R22.2 Localized swelling, mass and lump, trunk
CPT/HCPCS: 36415; 73130; 76604; 80053; 80061; 81001; 83036; 84443; 85025; 85652; 86038; 86431; 86617; 86618

== ENCOUNTER → 2024-09-04 13:08 | Outpatient (BNV) | payer OTHER, SELFPAY | PROVIDERS: PCP Physician Assistant; Visit Provider Radiology Diagnostic Radiology | DX: M18.0 Bilateral primary osteoarthritis of first carpometacarpal joints (principal); R22.2 Localized swelling, mass and lump, trunk | CPT/HCPCS: 73130; 76604 ==

== ENCOUNTER 2024-09-06 14:03 | Outpatient (AMB) | payer OTHER, SELFPAY ==
--- NOTE | 2024-09-06 14:15 | A.OFFVIS_ITS ---
Vital Signs 09/06/24 14:16 Height 5 ft 6 in Weight 181 lb BMI 29.2 Intake Visit Reasons: INP-Tremors Intake Note: Patient referred inhouse by Dr. Cook for Radiculopathy cervical region, tremor, numbness and tingling. Allergies Penicillins Allergy (Mild, Verified 09/06/24 14:19) Hives doxycycline [DOXYCYCLINE] Allergy (Unknown, Verified 09/06/24 14:19) SWELLING Medication List - Last Reconciled 09/06/24 by Jocelyne Page MD atorvastatin 40 mg PO BEDTIME 90 days No Known Home Meds HPI Comments Details: 59y/o Right Handed female comes for evaluation of tremors . Her tremors are mostly in her head and in her hands - she nocie dit about 1 year ago . she has cervical spondylosis and also has numbness tingling in ebony hands , L>R , shooting pain form neck down to the left Ue.she has neck discomfort and stiffness. She used to have back pain - had cortisone shots and she is doing good now and has been exercising regularly . No gait difficulities. C spine XRay shows spondylosis MRI brain -was normal . she also has mild voice tremors. Mood is stable. sleep is good No family history of tremors. [facility] Medical History (Updated 09/06/24 @ 14:52 by Jocelyne Page MD) Benign head tremor Cervical spondylosis BRCA gene mutation negative in female Cervical polyp Potential exposure to STD High cholesterol Degenerative arthritis No pertinent past medical history Surgical History H/O foot surgery History of endometrial ablation Family History Mother Hypertension Breast cancer, Onset Age: 50 Maternal Grandmother High cholesterol Thyroid disorder Paternal Grandfather Diabetes Social History Household Members: Family Housing: House Alcohol intake: current Alcohol intake frequency: holidays/special occasions only Patient Tobacco Use Status: Former Tobacco user Tobacco use type: Cigarette e-Cigarette/Vaping Use: Never Used service: No Current occupational status: employed Sexual orientation: Straight/Heterosexual Gender identity: Female Physical Exam Vital Signs: BMI result Body Mass Index 29.2 Const General: cooperative, healthy appearing, comfortable and no acute distress Nutritional Appearance: average body habitus Orientation/consciousness: patient oriented x3 Eyes Pupils: Equal, round and reactive pupils present Neuro Other: head tremors Left laterocollis tenderness an dtightness in ebony levator and trapezius Mild ebony hand tremors General: patient oriented x3, gait normal, tone normal, moves all extremities and no focal motor deficits Cranial nerves: Yes Facial sensation intact/muscles of mastication intact, Yes Equal, round and reactive pupils present, Yes Bilaterally intact EOM present, Yes Nystagmus not present, Yes Normal facial strength present, Yes Midline tongue present, Yes Symmetric palate elevation present and Yes Ability to bilaterally elevate shoulders present Cognition (Neuro): normal cognition Gait exam (Neuro): Normal gait present Motor exam (neuro): 5/5 motor strength present throughout and Normal motor muscle tone present throughout Deep tendon reflexes (DTR's): Right triceps reflex intensity grade: 2+, Left triceps reflex intensity grade: 2+, Rt Biceps (C5, C6): 2+, Left biceps reflex intensity grade: 2+, Right brachioradialis reflex intensity grade: 2+, Left brachioradialis reflex intensity grade: 2+, Right patellar reflex intensity grade: 2+ and Left patellar reflex intensity grade: 2+ Coordination: [id number]-bp-wtrv test normal Assessment & Plan Assessment & Plan (1) Benign head tremor: Comment: jolly cervicla dystonia Code(s): G25.0 - Essential tremor Category: Medical (2) Cervical spondylosis: Code(s): M47.812 - Spondylosis without myelopathy or radiculopathy, cervical region Category: Medical (3) Cervical radicular pain: Code(s): M54.12 - Radiculopathy, cervical region Category: Medical Plan MRI C spine to evaluate spondylosis I will trial her on cyclobenzaprine 5 mg qhs, magnesium 250mg qhs and will consider botox if she does not respond will consider EMG NCS Orders: Orders MR cervical spine wo con Today M25.512 - Pain in left shoulder, M47.812 - Spondylosis without myelopathy or radiculopathy, cervical region Medications: New cyclobenzaprine 5 mg PO BEDTIME 30 tabs 1RF magnesium citrate,mag oxide 250 mg PO .qhs 30 caps 6RF Coding Level of Care Code New Pt Level 4 (81332) Diagnoses Benign head tremor G25.0 Cervical spondylosis M47.812 Cervical radicular pain M54.12
[2024-09-06 14:16] VITALS: BMI 29.2
== END 2024-09-06 14:46 | disposition home or self-care (01) ==
LOC: HO.HSMS 14:03
PROVIDERS: PCP Family Medicine; Visit Provider Psychiatry & Neurology Neurology
DX: G25.0 Essential tremor (principal); M47.812 Spondylosis without myelopathy or radiculopathy, cervical region; M54.12 Radiculopathy, cervical region
CPT/HCPCS: 99204

== ENCOUNTER → 2024-09-06 14:03 | Outpatient (BNVA) | payer OTHER, SELFPAY | PROVIDERS: PCP Family Medicine; Visit Provider Psychiatry & Neurology Neurology | DX: G25.0 Essential tremor (principal); M47.812 Spondylosis without myelopathy or radiculopathy, cervical region; M54.12 Radiculopathy, cervical region | CPT/HCPCS: 99202 ==

== ENCOUNTER 2024-09-07 14:27 | Outpatient (REF) | payer OTHER, SELFPAY ==
--- NOTE | ~2024-09-07 | MR_ITS ---
EXAMINATION: MR CERVICAL SPINE WITHOUT CONTRAST CLINICAL INFORMATION: Pain in the left shoulder. Numbness, weakness and pain, both upper extremities. COMPARISON: None available. TECHNIQUE: MRI of the cervical spine was obtained using routine sequences without contrast. FINDINGS: Craniocervical junction is intact. There is a mild hyperintense FLAIR bone marrow signal at C5-6. Multilevel marginal osteophyte formation and disc desiccation C3 C7 more conspicuous at C4-5 and C5-6 levels. Grade 1 retrolisthesis C6-7 and C5-6. The cervical spinal cord signal is normal. C2-3: No disc herniation. No neuroforamina stenosis. C3-4: Left-sided disc osteophyte complex formation. No cord compression. Left neuroforamina stenosis. C4-5: Broad-based disc osteophyte complex formation. No cord compression. Left neuroforamina stenosis. C5-6: Broad-based disc osteophyte complex formation. No cord compression. Left neuroforamina narrowing. C6-7: Broad-based disc osteophyte compresses formation. No cord compression. Left neuroforamina narrowing. C7-T1: No disc herniation. No neuroforamina stenosis. No prevertebral compartment hematoma mass or fluid collection. Flow-void signal within the main vessels is normal. Left vertebral artery slightly dominant. MR/MR cervical spine wo con IMPRESSION: Multilevel cervical spondylosis C3-4 to C6-7 resulting in multilevel left neuroforamina stenosis. No cord compression, cord edema and or myelopathy Electronically signed by: Joe Collins MD 09/07/2024 03:49 PM EDT
== END 2024-09-07 14:28 | disposition home or self-care (01) ==
LOC: HO.MRI 14:27
PROVIDERS: PCP Family Medicine; Visit Provider Psychiatry & Neurology Neurology
DX: M25.512 Pain in left shoulder (principal); M47.812 Spondylosis without myelopathy or radiculopathy, cervical region
CPT/HCPCS: 72141

== ENCOUNTER → 2024-09-07 14:37 | Outpatient (BNV) | payer OTHER, SELFPAY | PROVIDERS: PCP Family Medicine; Visit Provider Radiology Diagnostic Radiology | DX: M47.812 Spondylosis without myelopathy or radiculopathy, cervical region (principal) | CPT/HCPCS: 72141 ==

== ENCOUNTER 2024-10-30 10:09 | Outpatient (REF) | payer OTHER, SELFPAY ==
--- NOTE | 2024-10-30 10:14 | EMG_ITS ---
Left median and ulnar motor and sensory studies were performed. Left radial and median and lateral antecubital brachial sensory studies were performed and paraspinal muscles were tested with a needle. IMPRESSION: Mild left median neuropathy across carpal tunnel. MD ELIE De Leon/BHAVNA / [id number]
== END 2024-10-30 10:10 | disposition home or self-care (01) ==
LOC: HO.NEURO 10:09
PROVIDERS: PCP Family Medicine; Visit Provider Psychiatry & Neurology Neurology
DX: R20.2 Paresthesia of skin (principal); R20.0 Anesthesia of skin
CPT/HCPCS: 95886; 95910

== ENCOUNTER 2024-12-04 13:03 | Outpatient (AMB) | payer OTHER, SELFPAY ==
--- NOTE | 2024-11-27 11:23 | MHC.OFFVIS ---
Vital Signs 12/04/24 13:12 Height 5 ft 6 in Weight 180 lb BMI 29.0 BP 134/82 Blood Pressure Location Rt brachial Position Sitting Intake Visit Reasons: 3 mo follow up Intake Note: Patient presents for cervical spine MRI 09/07/24. patient also given med trial cyclobenzaprine and magnesium Allergies Penicillins Allergy (Mild, Verified 12/04/24 13:13) Hives doxycycline (DOXYCYCLINE) Allergy (Unknown, Verified 12/04/24 13:13) SWELLING HPI Comments Details: 59y/o Right Handed female comes for follow up of head tremors .No respons eto cyclobenzaprine. MRI C spine showed spondylosis with left foraminal narrowing. Her tremors are mostly in her head and in her hands - she noticed about 1 year ago . she has cervical spondylosis and also has numbness tingling in ebony hands , L>R , shooting pain form neck down to the left Ue.she has neck discomfort and stiffness. She used to have back pain - had cortisone shots and she is doing good now and has been exercising regularly . No gait difficulities. MRI brain -was normal . she also has mild voice tremors. Mood is stable. sleep is good No family history of tremors. [facility] Medical History Cervical dystonia Numbness and tingling in left arm Paresthesia of left upper extremity Benign head tremor Cervical spondylosis BRCA gene mutation negative in female Cervical polyp Potential exposure to STD High cholesterol Degenerative arthritis No pertinent past medical history Surgical History H/O foot surgery History of endometrial ablation Family History Mother Hypertension Breast cancer, Onset Age: 50 Maternal Grandmother High cholesterol Thyroid disorder Paternal Grandfather Diabetes Social History Household Members: Family Housing: House Alcohol intake: current Alcohol intake frequency: holidays/special occasions only Patient Tobacco Use Status: Former Tobacco user Tobacco use type: Cigarette e-Cigarette/Vaping Use: Never Used service: No Current occupational status: employed Sexual orientation: Straight/Heterosexual Gender identity: Female Physical Exam Vital Signs: Last Vital Signs BP 134/82 12/04/24 13:12 BMI result Body Mass Index 29.0 Const General: cooperative, healthy appearing, comfortable and no acute distress Nutritional Appearance: average body habitus Orientation/consciousness: patient oriented x3 Eyes Pupils: Equal, round and reactive pupils present Neuro Other: head tremors Left laterocollis tenderness an dtightness in ebony levator and trapezius Mild ebony hand tremors General: patient oriented x3, gait normal, tone normal, moves all extremities and no focal motor deficits Cranial nerves: Yes Facial sensation intact/muscles of mastication intact, Yes Equal, round and reactive pupils present, Yes Bilaterally intact EOM present, Yes Nystagmus not present, Yes Normal facial strength present, Yes Midline tongue present, Yes Symmetric palate elevation present and Yes Ability to bilaterally elevate shoulders present Cognition (Neuro): normal cognition Gait exam (Neuro): Normal gait present Motor exam (neuro): 5/5 motor strength present throughout and Normal motor muscle tone present throughout Coordination: uwtqhu-go-hasn test normal Assessment & Plan Assessment & Plan (1) Benign head tremor: Comment: cervical dystonia Code(s): G25.0 - Essential tremor Category: Medical (2) Cervical spondylosis: Code(s): M47.812 - Spondylosis without myelopathy or radiculopathy, cervical region Category: Medical (3) Cervical radicular pain: Code(s): M54.12 - Radiculopathy, cervical region Category: Medical (4) Cervical dystonia: Code(s): G24.3 - Spasmodic torticollis Category: Medical Plan MRI C spine severe spondylosis- no cord compression Continue cyclobenzaprine 5 mg qhs, magnesium 250mg qhs will get prior auth for botox for cervical dystonia Coding Level of Care Code Est Pt Level 4 (61598) Complex EM visit Add On G2211 Diagnoses Benign head tremor G25.0 Cervical spondylosis M47.812 Cervical radicular pain M54.12 Cervical dystonia G24.3
[2024-12-04 13:12] VITALS: BP 134/82; BMI 29.0
== END 2024-12-04 14:44 | disposition home or self-care (01) ==
PROVIDERS: PCP Family Medicine; Visit Provider Psychiatry & Neurology Neurology
DX: G25.0 Essential tremor (principal); M47.812 Spondylosis without myelopathy or radiculopathy, cervical region; M54.12 Radiculopathy, cervical region; G24.3 Spasmodic torticollis
CPT/HCPCS: 99214; G2211

== ENCOUNTER → 2024-12-04 13:03 | Outpatient (BNVA) | payer OTHER, SELFPAY | PROVIDERS: PCP Family Medicine; Visit Provider Psychiatry & Neurology Neurology | DX: G25.0 Essential tremor (principal); M47.812 Spondylosis without myelopathy or radiculopathy, cervical region; M54.12 Radiculopathy, cervical region; G24.3 Spasmodic torticollis | CPT/HCPCS: 99212 ==

== ENCOUNTER 2024-12-06 10:50 | Outpatient (AMB) | payer OTHER, SELFPAY ==
--- NOTE | 2024-12-06 11:24 | A.OFFVIS_ITS ---
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 Cook. She has a past medical history of tremors, cervical dystonia, benign head tremor, cervical spondylosis, hypercholesteremia, and degenerative arthritis. She presents to the office today as a new patient for microscopic hematuria as well as mixed urinary incontinence. In discussion with the patient today she reports having followed up with her PCP at which time recommendations were made for urology referral for further assessment evaluation. In office urinalysis results were reviewed 2+ microscopic hematuria otherwise within normal limits. She does report a previous history of smoking as a teenager for 4 years in describes this as being social smoking. She reports noting over the last 6 months she has been having episodes of mixed urine incontinence however is unsure if this is related to her new onset of tremors. She reports following up with Neurology and will be undergoing Botox within the next month as she has tried medications and has not found them helpful. We did discussed potential causes of microscopic hematuria as well as mixed urinary incontinence and further treatment options and risks and benefits of these treatment options. She otherwise denies nocturia, gross/visible hematuria, dysuria, foul smelling urine, changes to urinary stream, flank pain, fever, and or chills. She does report a previous history of 3 vaginal births. She reports labors were short and babies were of average size. [facility] Medical History Cervical dystonia Numbness and tingling in left arm Paresthesia of left upper extremity Benign head tremor Cervical spondylosis BRCA gene mutation negative in female Cervical polyp Potential exposure to STD High cholesterol Degenerative arthritis No pertinent past medical history Surgical History H/O foot surgery History of endometrial ablation Family History Mother Hypertension Breast cancer, Onset Age: 50 Maternal Grandmother High cholesterol Thyroid disorder Paternal Grandfather Diabetes Social History Household Members: Family Housing: House Alcohol intake: current Alcohol intake frequency: holidays/special occasions only Patient Tobacco Use Status: Former Tobacco user Tobacco use type: Cigarette e-Cigarette/Vaping Use: Never Used service: No Current occupational status: employed Sexual orientation: Straight/Heterosexual Gender identity: Female Review of Systems Const All systems reviewed & are unremarkable except as noted in HPI and below Physical Exam Const General: cooperative, comfortable, no acute distress, well developed, alert and awake Orientation/consciousness: patient oriented x3 Limitations: no limitations HEENT Head: Yes normal to inspection, Yes normocephalic and Yes atraumatic Ears: hearing grossly normal bilaterally Eyes General: appearance normal, both eyes and all related structures Neck Neck: Yes normal visual inspection and Yes trachea midline Chest Chest palpation & inspection: normal inspection of the chest Resp Effort & Inspection: normal respiratory effort and able to speak in complete sentences Cardio Rate: regular rate GI Inspection: Yes normal to inspection General: Yes no CVA tenderness Back/Spine/Pelvis Back: no CVA tenderness Skin General skin exam: no rashes or lesions noted Neuro General: patient oriented x3 Extrem General: Yes normal to inspection Psych Appearance: grossly normal and well kempt Mental Status: mental status grossly normal Speech and movement: Normal speech and movement present and Clear speech present Affect: normal affect Attitude: cooperative Thought process: Normal thought process present Thought content: Normal thought content present Insight: Fair insight present (Psych) Judgement: Fair judgement present (Psych) Results AMB Urinalysis, Automated 2 UA Leukoctes 0 Charla/uL Last Edit by EFRAIN Smith on 12/06/24 12:01 UA Nitrite Last Edit by EFRAIN Smith on 12/06/24 12:01 UA Urobilinogen 0.2 mg/dL Last Edit by Jose Peterson, [facility] on 12/06/24 12:0 1 UA Protein 0 mg/dL Last Edit by Jose Peterson, [facility] on 12/06/24 12:01 UA pH 6.0 Last Edit by Jose Rolon, [facility] on 12/06/24 12:01 UA Blood 80 Eusebio/uL Last Edit by Jose Rolon, [facility] on 12/06/24 12:01 UA Specific [place] 1.010 Last Edit by Jose Rolon, [facility] on 12/06/24 12: 01 UA Ketone Last Edit by Jose Rolon, [facility] on 12/06/24 12:01 UA Bilirubin 0 mg/dL Last Edit by Jose Peterson, [facility] on 12/06/24 12:01 UA Glucose 0 mg/dL Last Edit by Jose Peterson, [facility] on 12/06/24 12:01 Results Reviewed Results Reviewed: Laboratory Last Values Urine pH (Auto) 6.0 12/06/24 12:00 Specific [place] (Auto) 1.010 12/06/24 12:00 Urine Protein (Auto) 0 mg/dL 12/06/24 12:00 Glucose (UA)(Auto) 0 mg/dL 12/06/24 12:00 Urine Blood (Auto) 80 Eusebio/uL 12/06/24 12:00 Urine Bilirubin (Auto) 0 mg/dL 12/06/24 12:00 Urine Urobilinogen (Auto) 0.2 mg/dL 12/06/24 12:00 Leukocyte Esterase (Auto) 0 Charla/uL 12/06/24 12:00 Assessment & Plan Assessment & Plan (1) Microscopic hematuria: Code(s): R31.29 - Other microscopic hematuria Category: Medical Plan In office urinalysis results reviewed with the patient today; as noted above; w ill send for urine cytology. We discussed potential causes of microscopic hematuria as well as mixed urinary incontinence; we discussed further workup and interventions in risks and benefits of these interventions. Will obtain CT urogram for further assessment evaluation. BUN and creatinine ordered for imaging. She would like to undergo workup for microscopic hematuria first and then reass ess symptoms of mixed urinary incontinence. Information provided regarding hematuria, in office cystoscopy, and urodynamics. Follow-up next available in office cystoscopy with imaging and labs to be c ompleted prior; or sooner with any issues, concerns, and or questions. Orders: Orders Urine Cytology Today R31.9 - Hematuria, unspecified CT urogram Today R31.0 - Gross hematuria Creatinine Today R31.29 - Other microscopic hematuria AMB Urinalysis Automated Today Z13.9 - Encounter for screening, unspecified Blood Urea Nitrogen Today N39.46 - Mixed incontinence, R31.29 - Other micr oscopic hematuria Patient Instructions: The patient had an opportunity to ask questions regarding the treatment plan. All questions were answered. Physical exam, labs, and imaging were discussed and reviewed in detail. As well as risks, benefits, and discussion of treatment choices. No major barriers to understanding were identified. The patient expressed understanding and agreement with the above treatment plan. The patient was made aware they should contact our office by phone for worsening of their current condition, the appearance of new symptoms, or with any questions or concerns. Compliance is encouraged with any medications and follow up testing that is ordered. It is a privilege to be allowed the opportunity to participate in? your urological care.? Again, if you have any questions or concerns If you have any questions or concerns please do not hesitate to contact me. The office is [phone]. This note is constructed using voice recognition software. While every effort has been made to ensure accuracy over hauler helper errors may have been included. Yours sincerely, DEE DEE Clark Coding Level of Care Code New Pt Level 3 (81012) Diagnoses Microscopic hematuria R31.29
== END 2024-12-06 12:05 | disposition home or self-care (01) ==
LOC: HO.HUSH 10:51
PROVIDERS: PCP Family Medicine; Visit Provider Nurse Practitioner Family
DX: Z13.9 Encounter for screening, unspecified (principal); R31.29 Other microscopic hematuria
CPT/HCPCS: 99203

== ENCOUNTER 2024-12-06 10:50 | Outpatient (REF) | payer OTHER, SELFPAY ==
[2024-12-06 17:01] LABS: Urine Cytology See Pathology rpt
== END 2024-12-06 10:51 | disposition home or self-care (01) ==
LOC: HO.LNP 10:50
PROVIDERS: PCP Family Medicine; Visit Provider Nurse Practitioner Family
DX: R31.29 Other microscopic hematuria (principal)
CPT/HCPCS: 81003; 88112; 99202

== ENCOUNTER 2024-12-17 09:03 | Outpatient (AMB) | payer OTHER, SELFPAY ==
--- NOTE | 2024-12-17 09:07 | A.OFFVIS_ITS ---
Vital Signs 12/17/24 09:11 Weight 171 lb 15.369 oz BP 118/64 Blood Pressure Location Lt brachial Position Sitting Pulse 80 Intake Visit Reasons: Hematemesis/diaphragmatic hernia Intake Note: * Bianca presents in the office as a new patient for hematemsis and a diaphragmatic hernia. * CC: She states that she has been throwing up since she was a child - she states she has lost jobs because of it. She threw up blood at one point and states it will happen randomly throughout to. Supervisor Mapping Required: No Allergies Penicillins Allergy (Mild, Verified 12/17/24 09:14) Hives doxycycline (DOXYCYCLINE) Allergy (Unknown, Verified 12/17/24 09:14) SWELLING HPI Comments Details: 59 y.o F with PMH of who is here for one episode of spitting up blood . Reports one single episode around Mar 2024 when was exerting herself while prepping for her daughter's wedding. Reports carrying heavy stuff up the the stairs. Then coughed up blood which was bright red and appeared like streaks in the sputum. No other abd sx with this. No change in bowel habits. She is worried because she was told she has a hiatal hernia . Was not able to find this reported in chest or abd imaging dating back to . Prev chest imaging 2011 shows emphysema and lung scarring. Pt not aware of a diagnosis of COPD. Additionally, pt also reports almost daily episode of regurgitation/vomiting.This is typically post prandial after certain foods such as tacos, steak etc. Has GB in situ. Smokes 1 PPD x 22 years (had a period of 15 years of not smoking in between). Only drinks socially. No fam hx of CRC, esophageal or stomach ca. Cologuard 2022 NEGATIVE. [facility] Medical History Cervical dystonia Numbness and tingling in left arm Paresthesia of left upper extremity Benign head tremor Cervical spondylosis BRCA gene mutation negative in female Cervical polyp Potential exposure to STD High cholesterol Degenerative arthritis No pertinent past medical history Surgical History H/O foot surgery History of endometrial ablation Family History Mother Hypertension Breast cancer, Onset Age: 50 Maternal Grandmother High cholesterol Thyroid disorder Paternal Grandfather Diabetes Social History Household Members: Family Housing: House Alcohol intake: current Alcohol intake frequency: holidays/special occasions only Patient Tobacco Use Status: Former Tobacco user Tobacco use type: Cigarette e-Cigarette/Vaping Use: Never Used service: No Current occupational status: employed Sexual orientation: Straight/Heterosexual Gender identity: Female Review of Systems Const All systems reviewed & are unremarkable except as noted in HPI and below Physical Exam Vital Signs: Last Vital Signs Pulse 80 12/17/24 09:11 BP 118/64 12/17/24 09:11 No apparent distress Nonicteric Abdomen soft, nondistended Alert and oriented x3, normal gait Assessment & Plan Assessment & Plan (1) Hemoptysis: Code(s): R04.2 - Hemoptysis (2) Hiatal hernia: Code(s): K44.9 - Diaphragmatic hernia without obstruction or gangrene Category: Medical (3) Nausea & vomiting: Code(s): R11.2 - Nausea with vomiting, unspecified Category: Medical Plan 1. One time episode of coughing up blood/hemoptysis has not recurred. Unlikely to be GI related given absence of any other gastrointestinal sx around that time including abd pain, change in stools etc. 2. Chronic N/V post prandial could be secondary to GERD vs gastritis vs food intolerance vs symptomatic gallstones vs dysmotility. Reviewed with the pt that unable to find documentation of HH in previous imaging, would avor getting a barium swallow which also help with r/o gerd, gastritis/duodenitis, PUD etc. Plan: - Barium swallow - US abd - EGD to be booked. Will favor getting PFTs prior to booking this given prev chest imaging findings + current smoking status. - Empiric omeprazole 20 once daily - Pt reminded next CRC due in 2025. Follow up after egd Orders: Orders FL barium swallow Today K44.9 - Diaphragmatic hernia without obstruction or gangrene US abdomen complete Today R11.0 - Nausea PFT pulmonary function test Today J44.9 - Chronic obstructive pulmonary disease, unspecified Medications: New omeprazole 20 mg PO DAILY 90 caps 0RF Discontinued cyclobenzaprine Discontinued Reason: Patient no longer taking 5 mg PO BEDTIME 30 tabs 1RF Coding Level of Care Code New Pt Level 4 (27812) Diagnoses Hemoptysis R04.2 Hiatal hernia K44.9 Nausea & vomiting R11.2
[2024-12-17 09:11] VITALS: BP 118/64; PULSE 80
== END 2024-12-17 09:48 | disposition home or self-care (01) ==
LOC: HO.HGI 09:04
PROVIDERS: PCP Family Medicine; Visit Provider Internal Medicine
DX: R04.2 Hemoptysis (principal); K44.9 Diaphragmatic hernia without obstruction or gangrene; R11.2 Nausea with vomiting, unspecified
CPT/HCPCS: 99204

== ENCOUNTER → 2024-12-17 09:03 | Outpatient (BNVA) | payer OTHER, SELFPAY | PROVIDERS: PCP Family Medicine; Visit Provider Internal Medicine | DX: R04.2 Hemoptysis (principal); R11.0 Nausea; K44.9 Diaphragmatic hernia without obstruction or gangrene | CPT/HCPCS: 99202 ==

== ENCOUNTER 2024-12-18 09:55 | Outpatient (REF) | payer OTHER, SELFPAY ==
--- NOTE | ~2024-12-18 | US_ITS ---
CLINICAL HISTORY: R11.0 - Nausea US abdomen complete Comparison: None provided Findings: Tiny 5 mm proximal pancreatic cyst. The aorta and inferior vena cava are normal caliber. The liver is normal in size and echotexture. Liver measures 13 cm in There is no intrahepatic bile duct dilatation. The common duct is five mm in diameter. The gallbladder is normal. There is no sonographic Crawley sign. The main portal vein is antegrade. The right kidney is 11.2 cm in length. The left kidney is 10 cm in length. Mild focal left renal scarring. Otherwise unremarkable kidneys without hydronephrosis. The spleen is normal. Spleen measures 8.8 cm in length. No ascites. IMPRESSION: 5 mm proximal pancreatic cyst could be further evaluated with pancreatic protocol CT or MRI in 1 year. Otherwise unremarkable exam. This document has been electronically signed by: Brionna Gutierres MD on 12/18/2024 12:34:43
== END 2024-12-18 09:56 | disposition home or self-care (01) ==
LOC: HO.US 09:55
PROVIDERS: PCP Family Medicine; Visit Provider Internal Medicine
DX: R11.0 Nausea (principal)
CPT/HCPCS: 76700

== ENCOUNTER → 2024-12-18 09:58 | Outpatient (BNV) | payer OTHER, SELFPAY | PROVIDERS: PCP Family Medicine; Visit Provider Radiology Diagnostic Radiology | DX: R11.0 Nausea (principal); K86.2 Cyst of pancreas | CPT/HCPCS: 76700 ==

== ENCOUNTER 2024-12-25 07:38 | Outpatient (AMB) | payer OTHER, SELFPAY ==
[2024-12-25 07:39] VITALS: BP 128/82; PULSE 80; O2SAT 97; BMI 28.5
--- NOTE | 2024-12-25 07:39 | A.OFFVIS_ITS ---
Vital Signs 12/25/24 07:39 Height 5 ft 6 in Weight 176 lb 8 oz BMI 28.5 BP 128/82 Blood Pressure Location Lt brachial Position Sitting Pulse 80 Pulse Source Pulse Oximeter Pulse Oximetry (%) 97 Oxygen Delivery Method Room Air Intake Visit Reasons: Botox Intake Note: Patient presents for botox injection. Allergies Penicillins Allergy (Mild, Verified 12/25/24 07:43) Hives doxycycline (DOXYCYCLINE) Allergy (Unknown, Verified 12/25/24 07:43) SWELLING Medication List - Last Reconciled 12/25/24 by Jocelyne Page MD atorvastatin 40 mg PO BEDTIME 90 days magnesium oxide mg PO BEDTIME omeprazole 20 mg PO DAILY HPI Comments Details: 59y/o female comes for treatment of her cervical dystonia ? Side effects including spread of toxin effect, dysphagia, breathing difficulties , bronchitis etc was discussed in detail and the patient agreed to the procedure.An informed consent was obtained ??? Botulinum toxin type A 200units X 1 -was diluted with 4 cc of normal saline at a concentration of 25 units in 0.5cc saline. Lot number [id number] expiration 03/2027 ??? Muscles injected ??? Right Splenius - 25 units each ??? Right levator 50 units each Left levator 25 units ??? BilTrapezius 25units each Triston semicpinalis 12.5 units each ??? Total used 175units Discarded 25 units PFSH Medical History Cervical dystonia Numbness and tingling in left arm Paresthesia of left upper extremity Benign head tremor Cervical spondylosis BRCA gene mutation negative in female Cervical polyp Potential exposure to STD High cholesterol Degenerative arthritis No pertinent past medical history Surgical History H/O foot surgery History of endometrial ablation Family History Mother Hypertension Breast cancer, Onset Age: 50 Maternal Grandmother High cholesterol Thyroid disorder Paternal Grandfather Diabetes Social History Household Members: Family Housing: House Alcohol intake: current Alcohol intake frequency: holidays/special occasions only Patient Tobacco Use Status: Former Tobacco user Tobacco use type: Cigarette e-Cigarette/Vaping Use: Never Used service: No Current occupational status: employed Sexual orientation: Straight/Heterosexual Gender identity: Female Physical Exam Vital Signs: Last Vital Signs Pulse 80 12/25/24 07:39 BP 128/82 12/25/24 07:39 Pulse Ox 97 12/25/24 07:39 Oxygen Delivery Method Room Air 12/25/24 07:39 BMI result Body Mass Index 28.5 Const General: cooperative, healthy appearing, comfortable and no acute distress Nutritional Appearance: average body habitus Orientation/consciousness: patient oriented x3 Eyes Pupils: Equal, round and reactive pupils present Neuro Other: head tremors Left laterocollis tenderness an dtightness in triston levator and trapezius Mild triston hand tremors General: patient oriented x3, gait normal, tone normal, moves all extremities and no focal motor deficits Cranial nerves: Yes Facial sensation intact/muscles of mastication intact, Yes Equal, round and reactive pupils present, Yes Bilaterally intact EOM present, Yes Nystagmus not present, Yes Normal facial strength present, Yes Midline tongue present, Yes Symmetric palate elevation present and Yes Ability to bilaterally elevate shoulders present Cognition (Neuro): normal cognition Gait exam (Neuro): Normal gait present Motor exam (neuro): 5/5 motor strength present throughout and Normal motor muscle tone present throughout Coordination: [id number] test normal Office Procedures Botulinum toxin Injection 09243 - Dystonia Procedure code (CPT) selection complete Office Meds onabotulinumtoxinA 200 unit solution for injection Performing Provider: Jocelyne Page MD Performing Location: [facility] [facility] Administered by: Jocelyne Page MD on 12/25/24 14:34 Dose Route Admin Location Dispensed Lot Number Expiration Date [facility] 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 175 unit subcut 200 units [id number] [employer] /[employer] Total Dispensed Waste 200 units 12.5 % Comments: see hpi Assessment & Plan Assessment & Plan (1) Benign head tremor: Comment: cervical dystonia Code(s): G25.0 - Essential tremor Category: Medical (2) Cervical dystonia: Code(s): G24.3 - Spasmodic torticollis Category: Medical Plan Patient tolerated the procedure well she will aall with any side effects Orders: Orders AMB Botulinum toxin Injection Today G24.3 - Spasmodic torticollis Coding Level of Care Code Est Pt Level 1 (72396) Diagnoses Benign head tremor G25.0 Cervical dystonia G24.3 CPT Codes Botox Injection - Botox 4: 35150 - Dystonia ([id number])
== END 2024-12-25 08:22 | disposition home or self-care (01) ==
LOC: HO.HSMS 07:39
PROVIDERS: PCP Family Medicine; Visit Provider Psychiatry & Neurology Neurology
DX: G24.3 Spasmodic torticollis (principal)
CPT/HCPCS: 64616

== ENCOUNTER → 2024-12-25 07:38 | Outpatient (BNVA) | payer OTHER, SELFPAY | PROVIDERS: PCP Family Medicine; Visit Provider Psychiatry & Neurology Neurology | DX: G25.0 Essential tremor (principal); G24.3 Spasmodic torticollis; R20.0 Anesthesia of skin; R20.2 Paresthesia of skin; E78.00 Pure hypercholesterolemia, unspecified; Z87.891 Personal history of nicotine dependence | CPT/HCPCS: 64616; 99211; J0585 ==

== ENCOUNTER 2024-12-26 10:25 | Outpatient (REF) | payer OTHER, SELFPAY ==
--- NOTE | ~2024-12-26 | MM_ITS ---
EXAMINATION: DXA BONE DENSITY AXIAL HISTORY: N95.1 - Menopausal and female climacteric states TECHNIQUE: [employer] Dual energy absorptiometry (DEXA) of the lumbar spine, total left hip, and femoral neck was performed. COMPARISON: There are no prior studies for comparison. FINDINGS: The bone mineral density of the lumbar spine is 0.959 g/cm2, corresponding to a T-score of -2.0, and a Z-score of -1.5. This is indicative of osteopenia. The bone mineral density of the left total hip is 0.746 g/cm2, corresponding to a T-score of -2.1, and a Z-score of -1.7. This is indicative of osteopenia. The bone mineral density of the left femoral neck is 0.770 g/cm2, corresponding to a T-score of -1.9, and a Z-score of -1.2. This is indicative of osteopenia. FRACTURE RISK: The FRAX index suggests a risk of major osteoporotic fracture of 8.4%, and of hip fracture 1.0%. MM/XR DEXA axial skeleton IMPRESSION: Based on bone mineral density, and according to World Health Organization (WHO) criteria, the diagnosis is consistent with osteopenia. Statistically, 68% of repeat scans fall within 1 SD (+/- 0.010 g/cm2 for AP spine L1-L4) and 1 SD (+/- 0.012 g/cm2 for femur total) FRAX is a trademark of the [employer] [place] [facility] Met[employer] Disease, a World Health Organization (WHO) Collaborating Center. Electronically signed by: Suresh Nevarez MD 12/26/2024 11:14 AM EDT
--- NOTE | ~2024-12-26 | MM_ITS ---
EXAMINATION: MM DIAGNOSTIC DIGITAL BREAST TOMOSYNTHESIS, BILATERAL CLINICAL INFORMATION: Two-year follow-up for grouped consultations in the upper outer right breast. COMPARISON: Mammography: Comparison is made with relevant prior exams. TECHNIQUE: Digital breast mammography with tomosynthesis is performed in both the craniocaudal and mediolateral oblique views along with computer-aided detection (CAD). FINDINGS: The breasts are heterogeneously dense, which may obscure small masses (ACR BI-RADS breast composition Category c). Loosely scattered punctate round and lucent centered calcifications or not significant change from prior magnification views dating back for 2 years and therefore benign. There are no significant masses, abnormal calcifications, or other abnormalities. Results are provided to the patient at time of visit by the technologist. MM/MM tomosynthesis diagnostic BI IMPRESSION: No mammographic evidence of malignancy. Patient has a strong family history of breast cancer including mother and 2 cousins. Breast MRI could be considered for further evaluation. Breast MRI would need to be ordered by the patient's providing clinician. ASSESSMENT: BI-RADS BI-RADS 2 - Benign Findings RECOMMENDATION: 1 year F/U This patient's information was entered into a reminder system with a target due date for their next mammogram. Electronically signed by: Sarah Andujar DO 12/26/2024 12:51 PM EDT
== END 2024-12-26 10:26 | disposition home or self-care (01) ==
LOC: HO.MAMMO 10:25
PROVIDERS: PCP Family Medicine; Visit Provider Physician Assistant
DX: R92.1 Mammographic calcification found on diagnostic imaging of breast (principal); Z13.820 Encounter for screening for osteoporosis; Z78.0 Asymptomatic menopausal state
CPT/HCPCS: 77062; 77066; 77080

== ENCOUNTER → 2024-12-26 10:30 | Outpatient (BNV) | payer OTHER, SELFPAY | PROVIDERS: PCP Family Medicine; Visit Provider Radiology Diagnostic Radiology | DX: E28.39 Other primary ovarian failure (principal); N95.1 Menopausal and female climacteric states | CPT/HCPCS: 77066; 77080 ==

== ENCOUNTER 2025-01-11 09:21 | Outpatient (REF) | payer OTHER, SELFPAY ==
[2025-01-11 10:43] LABS: Blood Urea Nitrogen 12 mg/dL (9-16); Estimated Glomerular Filt Rate > 60
== END 2025-01-11 09:22 | disposition home or self-care (01) ==
LOC: HO.LAB 09:21
PROVIDERS: Absent Provider Physician Assistant; PCP Family Medicine; Visit Provider Nurse Practitioner Family
DX: L02.11 Cutaneous abscess of neck (principal); R11.2 Nausea with vomiting, unspecified; D17.1 Benign lipomatous neoplasm of skin and subcutaneous tissue of trunk; I10 Essential (primary) hypertension
CPT/HCPCS: 36415; 82565; 84520; 99212

== ENCOUNTER 2025-01-11 13:29 | Outpatient (AMB) | payer OTHER, SELFPAY ==
--- NOTE | 2025-01-11 13:32 | A.OFFPC_ITS ---
Vital Signs 01/11/25 13:44 Height 5 ft 6 in Weight 176 lb 8 oz BMI 28.5 BP 108/68 Blood Pressure Location Rt brachial Position Sitting Pulse 93 Pulse Source Pulse Oximeter Temp 98.4 F Temp Source Temporal Artery Scan Pulse Oximetry (%) 97 Oxygen Delivery Method Room Air Intake Visit Reasons: lump on neck Intake Note: Bianca presents in the office today for a lump on the left side of her neck. Has reached out through the portal in regards to this with no response. Patient has stopped taking Omeprazole due to vomiting. Allergies Penicillins Allergy (Mild, Verified 01/11/25 13:38) Hives doxycycline (DOXYCYCLINE) Allergy (Unknown, Verified 01/11/25 13:38) SWELLING Medication List - Last Reconciled 01/11/25 by Junior Cook MD atorvastatin 40 mg PO BEDTIME 90 days magnesium oxide mg PO BEDTIME Tobacco use date assessed: 01/11/25 Dental Screening Dental Screen Date: 01/11/25 Did you have a dental visit in the last 12 months?: No Did you have a dental problem in the last 6 months where you did not have access to dental care?: No Was dental information given to patient?: Patient has dentist (Not since [facility]) HPI lump on neck HPI0 Details 59 y/o female presents today with compla ints of a lump on neck, L side. She notes it had recently started getting painful. Has not been doing anything for the lump. She notes she is allergic to penicillins and gives her hives. Had seen GI 12/17/24. Was given omeprazole for chronic N/V - per note, could be secondary to GERD vs gastritis vs food intolerance vs symptomatic gallstones vs dysmotility. Pt notes omeprazole has been causing nausea/vomiting. Reports a lump on her back. HPI Comments History of Present Illness Details Documentation assistance for Junior Cook MD, was provided by Shilo Archer,? [employer] on 01/11/2025 at 2:06 PM EST. I, Dr. Cook, have read, observed, and verified documentation. ?? [facility] Medical History Cervical dystonia Numbness and tingling in left arm Paresthesia of left upper extremity Benign head tremor Cervical spondylosis BRCA gene mutation negative in female Cervical polyp Potential exposure to STD High cholesterol Degenerative arthritis No pertinent past medical history Surgical History H/O foot surgery History of endometrial ablation Family History (Updated 01/11/25 @ 13:43 by Tali Anderson MA) Mother Hypertension Breast cancer, Onset Age: 50 Maternal Grandmother High cholesterol Thyroid disorder Paternal Grandfather Diabetes Social History (Updated 01/11/25 @ 13:44 by Tali Anderson MA) Household Members: Family Housing: House Alcohol intake: current Alcohol intake frequency: holidays/special occasions only Patient Tobacco Use Status: Former Tobacco user Tobacco use type: Cigarette e-Cigarette/Vaping Use: Never Used Second Hand Smoke Exposure: Yes service: No Current occupational status: employed Sexual orientation: Straight/Heterosexual Gender identity: Female Cognitive needs: No Hearing needs: No Vision needs: No Questionnaire Thrive Questionnaire Date Thrive assessed: 06/15/24 I am a: Patient What is your living situation today?: I choose not to answer this question Within the past 12 months, did the food you bought not last and you didn't have the money to get more?: I choose not to answer this question Within the past 12 months, did you worry whether your food would run out before you got money to buy more?: I choose not to answer this question Do you have trouble paying for medicines?: I choose not to answer this question Do you have trouble getting transportation to medical appointments?: I choose not to answer this question Do you have trouble paying your heating and electricity bill?: I choose not to answer this question Do you have trouble taking care of your child, family member or friend?: I choose not to answer this question Do you have trouble with day-to-day activities such as bathing, preparing meals, shopping, managing finances, etc.?: I choose not to answer this question Are you currently unemployed and looking for a job?: I choose not to answer this question Are you interested in more education?: I choose not to answer this question Please select the resources that you would like help with: None Currently or been in a relationship where the following occur: I choose not to answer THRIVE Score: 0 JUAN-7 AMB Questionnaire JUAN-7 Date JUAN - 7 assessed: 08/30/24 Source: Developed by Drs. Suresh Jean, Yulia Draper, Abhijeet Tobias and colleagues, with an educational muriel from [employer] Review of Systems Const Denies chills, Denies fatigue, Denies fever(s), Denies headache(s) and Denies weakness ENT Denies dizziness and Denies headache(s) Card Denies dyspnea Resp Denies cough, Denies dyspnea, Denies wheezing and Denies other (shortness of breath) Musc Denies numbness and Denies tingling Neuro Denies dizziness, Denies headache(s), Denies numbness, Denies tingling and Denies weakness Psych Denies anxiety and Denies depression Endo Denies fatigue Aller/Immun Denies wheezing Physical exam (Primary Care) Vital Signs: Last Vital Signs Temp 98.4 F 01/11/25 13:44 Pulse 93 01/11/25 13:44 BP 108/68 01/11/25 13:44 Pulse Ox 97 01/11/25 13:44 Oxygen Delivery Method Room Air 01/11/25 13:44 BMI result Body Mass Index 28.5 Tobacco/Smoking Status: Tobacco use Status Tobacco use date assessed 01/11/25 01/11/25 13:47 Patient Tobacco Use Status Former Tobacco user 01/11/25 13:44 Tobacco use type Cigarette 01/11/25 13:44 e-Cigarette/Vaping Use Never Used 01/11/25 13:44 Thrive Assessment: Date of Thrive Assessment Date Thrive assessed 06/15/24 01/11/25 13:33 Currently or been in a relationship where the following occur: I choose not to answer Const General: well developed; No acute distress Nutritional Appearance: well nourished Orientation/consciousness: patient oriented x3 HENMT Head: Yes normocephalic and Yes atraumatic Eyes General: appearance normal, both eyes and all related structures Pupils: Equal, round and reactive pupils present EOM: EOMs intact bilaterally Resp Effort & Inspection: normal respiratory effort Neuro General: patient oriented x3 and gait normal Cranial nerves: Yes Equal, round and reactive pupils present Psych Affect: normal affect Coding Level of Care Code Est Pt Level 4 (40599) Diagnoses Skin abscess L02.91 Nausea & vomiting R11.2 Lipoma D17.9 Assessment & Plan Assessment & Plan (1) Skin abscess: Code(s): L02.91 - Cutaneous abscess, unspecified Category: Medical Plan: Pimple-like abscess at neck Advised warm compresses and will send a script for cephalexin. Patient has allergy to doxycycline penicillins. Penicillins have caused hives in the past but no other symptoms. We discussed the minimal potential for crossover. She will watch for adverse symptoms with cephalexin. Call or return to office if worsening or not improving (2) Nausea & vomiting: Code(s): R11.2 - Nausea with vomiting, unspecified Category: Medical Plan: Patient has issues with nausea and vomiting. She thinks there may have been a worsening of this with omeprazole. As this would be unusual, I did ask her to try the medication again. Follow-up Dr. Davenport as recommended. Hydrate well and will try some ondansetron, particularly while she is taking an antibiotic. (3) Lipoma: Code(s): D17.9 - Benign lipomatous neoplasm, unspecified Category: Medical Plan: Patient has a lipoma on back. She was referring to this as a ?lymphoma? Clarified for patient that this is not a lymphoma. She can follow-up with Dermatology if it is irritating her. Orders: Orders Lipid Panel Today Z00.00 - Encounter for general adult medical examination without abnormal findings Microalbumin, Random (w Creat) Today I10 - Essential (primary) hypertension UA CC w/rflx Micro + Cult Today Z00.00 - Encounter for general adult medical examination without abnormal findings Complete Blood Count Auto Diff Today Z00.00 - Encounter for general adult medical examination without abnormal findings Comprehensive [place]. Panel Fast Today Z00.00 - Encounter for general adult medical examination without abnormal findings TSH reflex Free T4 Today Z00.00 - Encounter for general adult medical examination without abnormal findings Medications: New cephalexin 500 mg PO Q12H 20 caps 0RF 10 days ondansetron 4 mg PO Q8H PRN 12 tabs 0RF nausea and vomiting 30 days
[2025-01-11 13:44] VITALS: BP 108/68; PULSE 93; TEMP 36.9; O2SAT 97; BMI 28.5
== END 2025-01-11 14:27 | disposition home or self-care (01) ==
LOC: HO.HMCFM 13:30
PROVIDERS: PCP Family Medicine; Visit Provider Family Medicine
DX: L02.91 Cutaneous abscess, unspecified (principal); R11.2 Nausea with vomiting, unspecified; D17.9 Benign lipomatous neoplasm, unspecified

== ENCOUNTER 2025-01-15 07:54 | Outpatient (REF) | payer OTHER, SELFPAY ==
--- NOTE | ~2025-01-15 | FL_ITS ---
EXAMINATION: XR BARIUM SWALLOW CLINICAL INFORMATION: Fullness in the epigastric region. COMPARISON: None available. TECHNIQUE: Routine barium swallow was performed in upright view with thick barium and saltine crackers and thin barium in prone lying position. FINDINGS: Following oral administration of thick barium in upright view in different positions is normal propagation bolus from the oral cavity through the pharynx, esophagus into stomach without any evidence of obstruction, narrowing or stricture. On oral administration of saltine crackers coated with barium paste there is normal oral mastication with normal antegrade flow of bolus through the pharynx, esophagus into stomach without obstruction or narrowing. No laryngeal penetration or aspiration. No retention of barium in the valleculae or piriform sinuses. On oral administration of thin barium in prone lying position there is normal distention of the entire esophagus without intraluminal filling defect or extrinsic compression. The small cyst sliding hiatal hernia with moderate gastroesophageal reflux into the upper mid esophagus. FLUOROSCOPY TIME: 2 minutes 12 seconds. DOSE AREA PRODUCT: 1319 uGy-m2 (microgray-meter squared) FL/FL barium swallow IMPRESSION: Unremarkable barium swallow examination. Electronically signed by: Cam Mayfield MD 01/15/2025 08:48 AM EDT
== END 2025-01-15 07:55 | disposition home or self-care (01) ==
LOC: HO.XRAY 07:54
PROVIDERS: PCP Family Medicine; Visit Provider Internal Medicine
DX: K44.9 Diaphragmatic hernia without obstruction or gangrene (principal)
CPT/HCPCS: 74220

== ENCOUNTER → 2025-01-15 07:56 | Outpatient (BNV) | payer OTHER, SELFPAY | PROVIDERS: PCP Family Medicine; Visit Provider Radiology Diagnostic Radiology | DX: K44.9 Diaphragmatic hernia without obstruction or gangrene (principal) | CPT/HCPCS: 74220 ==

== ENCOUNTER 2025-01-17 07:58 | Outpatient (REF) | payer OTHER, SELFPAY | END 2025-01-17 07:59 | disposition home or self-care (01) | LOC: HO.CT 07:58 | PROVIDERS: PCP Family Medicine; Visit Provider Nurse Practitioner Family | DX: Z13.89 Encounter for screening for other disorder (principal) ==

== ENCOUNTER 2025-01-24 10:49 | Outpatient (AMB) | payer OTHER, SELFPAY ==
--- NOTE | 2025-01-24 10:51 | A.OFFVIS_ITS ---
Intake Visit Reasons: cysto/ CT/ labs Intake Note: PT PRESENTS FOR: CYSTOSCOPY UROLOGY MEDICATIONS: NONE BLOOD THINNERS: NONE Clinical Transformation Specialist Required: No Accompanied by: Self / Same As Patient Allergies Penicillins Allergy (Mild, Verified 01/24/25 10:52) Hives doxycycline (DOXYCYCLINE) Allergy (Unknown, Verified 01/24/25 10:52) SWELLING HPI Comments Details: Sosa is a pleasant female. She is a patient of Dr. Cook. She is seen for the following urologic conditions - microscopic hematuria Completed evaluation Minor smoking history No exposures to chemicals Cystoscopy in office showed small urethral caruncle Asymptomatic Defer treatment 12 month follow-up office [facility] Medical History Cervical dystonia Numbness and tingling in left arm Paresthesia of left upper extremity Benign head tremor Cervical spondylosis BRCA gene mutation negative in female Cervical polyp Potential exposure to STD High cholesterol Degenerative arthritis No pertinent past medical history Surgical History H/O foot surgery History of endometrial ablation Family History (Updated 01/11/25 @ 13:43 by Tali Anderson MA) Mother Hypertension Breast cancer, Onset Age: 50 Maternal Grandmother High cholesterol Thyroid disorder Paternal Grandfather Diabetes Social History (Updated 01/11/25 @ 13:44 by Tali Anderson MA) Household Members: Family Housing: House Alcohol intake: current Alcohol intake frequency: holidays/special occasions only Patient Tobacco Use Status: Former Tobacco user Tobacco use type: Cigarette e-Cigarette/Vaping Use: Never Used Second Hand Smoke Exposure: Yes service: No Current occupational status: employed Sexual orientation: Straight/Heterosexual Gender identity: Female Cognitive needs: No Hearing needs: No Vision needs: No Review of Systems Const Denies chills and Denies fever(s) Card Reports no additional complaints and Denies syncope Resp Denies cough GI Denies abdominal pain and Denies heartburn Reports as per HPI and Denies change in libido Neuro Denies syncope Psych Denies change in libido Endo Denies change in libido Physical Exam Const General: cooperative, healthy appearing, comfortable and no acute distress Orientation/consciousness: patient oriented x3 HEENT Face and sinus: Yes normal facial exam Mouth: moist mucous membranes Neck Neck: Yes normal visual inspection, Yes full ROM and Yes trachea midline Chest Chest palpation & inspection: normal inspection of the chest Resp Effort & Inspection: normal respiratory effort, able to speak in complete sentences and no respiratory distress GI Inspection: Yes normal to inspection Back/Spine/Pelvis Cervical Spine: normal cervical lordosis Thoracic/Lumbar Spine: thoracic and lumbar spine normal to inspection Skin General skin exam: no rashes or lesions noted Neuro General: patient oriented x3, gait normal, tone normal and moves all extremities Extrem General: Yes normal to inspection and Yes capillary refill normal Office Procedures Cystoscopy Consent Discussed risk and benefit or proposed procedure with the patient. Information consent for procedure given to the patient. Discussed technical aspects, risks, benefits and alternatives in full. Addressed all of the patient's questions and concerns regarding the procedure. The patient demonstrated knowledge and understanding. They wish to proceed with this procedure. Preparation The patient was prepped in the usual manner. A livestock sales representative was present and in the room. Genitalia was prepped with betadine solution in a sterile manner. Lidocaine Jelly 2% was placed into the urethra and 16Fr flexible Olympus cystoscope was inserted into the meatus after adequate lubrication. Procedure Meatus small caruncle Urethra normal Bladder examination with retroflexion of cystoscope Bladder Orifices normal shape and position Trigone normal Bladder Capacity Normal Trabeculations Grade 0 Cellule Formation None Diverticulum Formation None Mucosal Erythema - has mild submucosal irritation in touchdown pattern Bladder Tumor None [id number] DISPOSABLE SCOPE URO-G FLEXIBLE SCOPE Procedure code (CPT) selection complete Office Meds lidocaine HCl 2 % mucosal jelly in applicator Performing Provider: Haris Singh MD Performing Location: [facility] [place] [facility] Administered by: Carrie Iraheta RN on 01/24/25 11:16 Dose Route Admin Location Dispensed Lot Number Expiration Date NDC Customer Experience Consultant 10 mL intra-urethral 10 mL nitrofurantoin monohydrate/macrocrystals 100 mg capsule Performing Provider: Haris Singh MD Performing Location: [facility] [place] [facility] Administered by: Carrie Iraheta RN on 01/24/25 11:16 Dose Route Admin Location Dispensed Lot Number Expiration Date NDC Customer Experience Consultant 100 mg PO 1 cap Results AMB Urinalysis, Automated UA Leukoctes 0 Charla/uL Last Edit by EFRAIN Samson on 01/24/25 11:12 UA Nitrite Negative Last Edit by EFRAIN Samson on 01/24/25 11:12 UA Urobilinogen 0.2 mg/dL Last Edit by EFRAIN Samson on 01/24/25 11:1 2 UA Protein 0 mg/dL Last Edit by EFRAIN Samson on 01/24/25 11:12 UA pH 6.0 Last Edit by EFRAIN Samson on 01/24/25 11:12 UA Blood 80 Eusebio/uL Last Edit by EFRAIN Samson on 01/24/25 11:12 UA Specific Pisek 1.020 Last Edit by EFRAIN Samson on 01/24/25 11: 12 UA Ketone Negative Last Edit by EFRAIN Samson on 01/24/25 11:12 UA Bilirubin 0 mg/dL Last Edit by EFRAIN Samson on 01/24/25 11:12 UA Glucose 0 mg/dL Last Edit by FERAIN Samson on 01/24/25 11:12 Results Reviewed Results Reviewed: Laboratory Last Values Urine pH (Auto) 6.0 01/24/25 11:09 Specific Pisek (Auto) 1.020 01/24/25 11:09 Urine Protein (Auto) 0 mg/dL 01/24/25 11:09 Glucose (UA)(Auto) 0 mg/dL 01/24/25 11:09 Urine Ketones (Auto) Negative 01/24/25 11:09 Urine Blood (Auto) 80 Eusebio/uL 01/24/25 11:09 Urine Nitrite (Auto) Negative 01/24/25 11:09 Urine Bilirubin (Auto) 0 mg/dL 01/24/25 11:09 Urine Urobilinogen (Auto) 0.2 mg/dL 01/24/25 11:09 Leukocyte Esterase (Auto) 0 Charla/uL 01/24/25 11:09 Assessment & Plan Assessment & Plan (1) Urethral caruncle: Code(s): N36.2 - Urethral caruncle Category: Medical (2) Microscopic hematuria: Code(s): R31.29 - Other microscopic hematuria Category: Medical Plan Twelve month follow-up UA assessment Orders: Orders AMB Urinalysis Automated Today Z13.9 - Encounter for screening, unspecified AMB Cystoscopy Today R31.29 - Other microscopic hematuria Patient Instructions: This note is constructed using voice recognition software. While every effort has been made to ensure accuracy pharmacy technician infusion errors may have been included. Imaging studies, laboratory and physical exam results were discussed and reviewed in detail. No major barriers to patient understanding were identified. An opportunity to ask questions regarding the treatment plan was provided. All questions were answered. The patient expressed understanding and agreement with the above treatment plan. The patient is aware they should contact our office by phone for worsening of their current condition or the appearance of new urologic symptoms. Compliance is encouraged with any medications and followup testing that is ordered. It is a privilege to participate in the urologic care of your patient. If you have any questions or concerns regarding treatment for the above conditions, or other urologic issues, please do not hesitate to contact me. The office telephone contact is [phone]. Sincerely, Dr Haris Singh MD, [facility] - Urology Compassionate Specialist Care for the Genitourinary System Coding Level of Care Code Est Pt Level 3 (72138) Diagnoses Urethral caruncle N36.2 Microscopic hematuria R31.29 CPT Codes Cystoscopy - CPT: 22122-[id number] ([id number])
== END 2025-01-24 11:46 | disposition home or self-care (01) ==
LOC: HO.HUSH 10:50
PROVIDERS: PCP Family Medicine; Visit Provider Urology
DX: N36.2 Urethral caruncle (principal); R31.29 Other microscopic hematuria; Z13.9 Encounter for screening, unspecified
CPT/HCPCS: 52000; 99213

== ENCOUNTER → 2025-01-24 10:49 | Outpatient (BNVA) | payer OTHER, SELFPAY | PROVIDERS: PCP Family Medicine; Visit Provider Urology | DX: N36.2 Urethral caruncle (principal); R31.29 Other microscopic hematuria | CPT/HCPCS: 52000; 81003; 99212 ==

== ENCOUNTER 2025-02-21 13:50 | Outpatient (REF) | payer OTHER, SELFPAY ==
--- NOTE | 2025-02-21 13:53 | PFT_ITS ---
Indication: COPD Spirometry FEV1 to FVC 70% pre bronchodilators 72% post bronchodilators; FEV1 3.08 L; FVC 4.28 L Lung Volumes Total lung capacity 111% predicted; residual volume 91% predicted Diffusion Capacity DLCO 71% predicted Comparisons None Interpretation There is a partially reversible obstruction suggesting asthma COPD overlap syndrome. No significant response to bronchodilators noted. Lung volumes are within normal limits. The patient does have a mild diffusion impairment. Clinical correlation warranted. MTDD
[2025-02-21 14:37] VITALS: PULSE 77; O2SAT 97
== END 2025-02-21 13:51 | disposition home or self-care (01) ==
LOC: HO.RESP 13:50
PROVIDERS: PCP Family Medicine; Visit Provider Internal Medicine
DX: J44.9 Chronic obstructive pulmonary disease, unspecified (principal)
CPT/HCPCS: 94060; 94640; 94727; 94729

== ENCOUNTER → 2025-02-21 13:53 | Outpatient (BNV) | payer OTHER, SELFPAY | PROVIDERS: PCP Family Medicine; Visit Provider Hospitalist | DX: J44.9 Chronic obstructive pulmonary disease, unspecified (principal) | CPT/HCPCS: 94060; 94727; 94729 ==

== ENCOUNTER 2025-03-19 09:21 | Outpatient (REF) | payer OTHER, SELFPAY ==
[2025-03-19 15:38] LABS: Bacterial Vaginosis PCR NEGATIVE (Negative); Candida Group PCR NOT DETECTED (Not Detect); Candida glab krusei PCR NOT DETECTED (Not Detect); Trichomonas vaginalis PCR NOT DETECTED (Not Detect)
[2025-03-19 16:11] LABS: CT PCR NOT DETECTED (Not Detect.); NG PCR NOT DETECTED (Not Detect.)
== END 2025-03-19 09:22 | disposition home or self-care (01) ==
LOC: HO.LNP 09:21
PROVIDERS: PCP Family Medicine; Visit Provider Advanced Practice Midwife
DX: Z01.419 Encounter for gynecological examination (general) (routine) without abnormal findings (principal); Z20.2 Contact with and (suspected) exposure to infections with a predominantly sexual mode of transmission
CPT/HCPCS: 81515; 87491; 87591; 99396

== ENCOUNTER 2025-03-19 09:21 | Outpatient (AMB) | payer OTHER, SELFPAY ==
[2025-03-19 09:24] VITALS: BP 128/70; BMI 28.1
--- NOTE | 2025-03-19 09:24 | MHC.OFFVIS ---
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 She is concerned about a prior history of HPV in her chart, no notes noted on the topic. She requests STD screening cultures today. Currently not sexually active. Denies any vaginal dryness or irritation. Attempting to eat a healthy diet, no exercise. Last pap smear; 2022, negative. Last mammogram; 2024. Colonoscopy is UTD. Family history of breast cancer. Patinet is BRCA negative. [facility] Medical History (Updated 03/19/25 @ 09:59 by Barb Evangelista CNM) Cervical dystonia Numbness and tingling in left arm Paresthesia of left upper extremity Benign head tremor Cervical spondylosis BRCA gene mutation negative in female Potential exposure to STD High cholesterol Degenerative arthritis No pertinent past medical history Surgical History H/O foot surgery History of endometrial ablation Family History Mother Hypertension Breast cancer, Onset Age: 50 Maternal Grandmother High cholesterol Thyroid disorder Paternal Grandfather Diabetes Social History Household Members: Family Housing: House Alcohol intake: current Alcohol intake frequency: holidays/special occasions only Patient Tobacco Use Status: Former Tobacco user Tobacco use type: Cigarette e-Cigarette/Vaping Use: Never Used Second Hand Smoke Exposure: Yes Patient : No service: No Current occupational status: employed Sexual orientation: Straight/Heterosexual Gender identity: Female Cognitive needs: No Hearing needs: No Vision needs: No Female Reproductive History Menstrual control method: none Total pregnancies: 4 Number of Living Children: 3 Ab spontaneous: 1 Date of last pap smear: 03/01/23 History of abnormal pap smear: No History of STI: No Date of Mammogram: 12/27/24 History of abnormal mammogram: Yes Review of Systems Const All systems reviewed & are unremarkable except as noted in HPI and below Physical Exam Vital Signs: Last Vital Signs BP 128/70 03/19/25 09:24 BMI result Body Mass Index 28.1 Const General: cooperative, healthy appearing and no acute distress Orientation/consciousness: patient oriented x3 GI Inspection: Yes normal to inspection Palpation (GI): Soft to palpation and Other GI palpation findings present (Nontender) Rectal Exam - Female: visual inspection normal General: Yes bladder normal to palpation External Female Exam: normal appearance of the urethra Speculum Exam - Vagina: normal appearance of the vagina, normal palpation, normal vaginal discharge and vagina atrophic Speculum Exam - Cervix: normal appearance of the cervix and normal palpation Bimanual exam- vagina & uterus: normal bimanual exam, normal palpation, uterine size normal, bladder normal to palpation, normal palpation, uterine shape normal and non-tender Bimanual Exam- Adnexa, other: normal adnexae Neuro General: patient oriented x3 Assessment & Plan Assessment & Plan (1) Encounter for well woman exam with routine gynecological exam: Code(s): Z01.419 - Encounter for gynecological examination (general) (routine) without abnormal findings Category: Medical (2) Possible exposure to STD: Code(s): Z20.2 - Contact with and (suspected) exposure to infections with a predominantly sexual mode of transmission Plan: BV and GC chlamydia obtained, await results for final plan of care. The patient expressed understanding and agreement with the plan of care. All of her questions and concerns were addressed to the best of my ability. Plan Discussed: Current recommendations for pap smears per ASCCP guidelines. Breast awareness, periodic self breast exams and yearly mammogram. Maintain a healthy lifestyle, well balanced diet including Calcium 1,200 mg and Vitamin D 600 IU daily, and routine exercise. Contact the office with any postmenopausal bleeding. Patient verbalizes understanding and agrees to the plan of care. She was given opportunity to ask questions and all questions were answered to the best of my ability. RTO in 1 year for annual obgyn hospitalist physician exam. This note is constructed using voice recognition software. While every effort has been made to ensure accuracy, hair weaver errors may have been included. Orders: Orders CT NG by PCR Vag/Cerv Today Z11.3 - Encounter for screening for infections with a predominantly sexual mode of transmission Bacterial Vaginosis Panel Today Z11.3 - Encounter for screening for infections with a predominantly sexual mode of transmission Coding Level of Care Code Est Pt Prev Care 40-64y(19089) Diagnoses Encounter for well woman exam with routine gynecological exam Z01.419 Possible exposure to STD Z20.2
== END 2025-03-19 11:04 | disposition home or self-care (01) ==
LOC: HO.HWS 09:21
PROVIDERS: PCP Family Medicine; Visit Provider Advanced Practice Midwife
DX: Z01.419 Encounter for gynecological examination (general) (routine) without abnormal findings (principal); Z20.2 Contact with and (suspected) exposure to infections with a predominantly sexual mode of transmission
CPT/HCPCS: 99396; 99459

== ENCOUNTER 2025-04-02 07:44 | Outpatient (AMB) | payer OTHER, SELFPAY ==
[2025-04-02 07:46] VITALS: BP 118/82; PULSE 75; O2SAT 98; BMI 28.5
--- NOTE | 2025-04-02 07:46 | MHC.OFFVIS ---
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 Side effects including spread of toxin effect, dysphagia, breathing difficulties , bronchitis etc was discussed in detail and the patient agreed to the procedure.An informed consent was obtained ??? Botulinum toxin type A 200units X 1 -was diluted with 4 cc of normal saline at a concentration of 25 units in 0.5cc saline. Lot number [id number] expiration 05/2027 ??? Muscles injected ??? Right Splenius - 25 units each ??? Right levator 50 units each Left levator 25 units ??? BilTrapezius 25units each Triston semicpinalis 12.5 units each ??? Total used 175units Discarded 25 units PFSH Medical History Cervical dystonia Numbness and tingling in left arm Paresthesia of left upper extremity Benign head tremor Cervical spondylosis BRCA gene mutation negative in female Potential exposure to STD High cholesterol Degenerative arthritis No pertinent past medical history Surgical History H/O foot surgery History of endometrial ablation Family History Mother Hypertension Breast cancer, Onset Age: 50 Maternal Grandmother High cholesterol Thyroid disorder Paternal Grandfather Diabetes Social History Household Members: Family Housing: House Alcohol intake: current Alcohol intake frequency: holidays/special occasions only Patient Tobacco Use Status: Former Tobacco user Tobacco use type: Cigarette e-Cigarette/Vaping Use: Never Used Second Hand Smoke Exposure: Yes service: No Current occupational status: employed Sexual orientation: Straight/Heterosexual Gender identity: Female Cognitive needs: No Hearing needs: No Vision needs: No Physical Exam Vital Signs: Last Vital Signs Pulse 75 04/02/25 07:46 BP 118/82 04/02/25 07:46 Pulse Ox 98 04/02/25 07:46 Oxygen Delivery Method Room Air 04/02/25 07:46 BMI result Body Mass Index 28.5 Const General: cooperative, healthy appearing, comfortable and no acute distress Nutritional Appearance: average body habitus Orientation/consciousness: patient oriented x3 Eyes Pupils: Equal, round and reactive pupils present Neuro Other: head tremors Left laterocollis tenderness an dtightness in triston levator and trapezius Mild triston hand tremors General: patient oriented x3, gait normal, tone normal, moves all extremities and no focal motor deficits Cranial nerves: Yes Facial sensation intact/muscles of mastication intact, Yes Equal, round and reactive pupils present, Yes Bilaterally intact EOM present, Yes Nystagmus not present, Yes Normal facial strength present, Yes Midline tongue present, Yes Symmetric palate elevation present and Yes Ability to bilaterally elevate shoulders present Cognition (Neuro): normal cognition Gait exam (Neuro): Normal gait present Motor exam (neuro): 5/5 motor strength present throughout and Normal motor muscle tone present throughout Coordination: [id number] test normal Office Procedures Botulinum toxin Injection 17850 - Dystonia Procedure code (CPT) selection complete Office Meds onabotulinumtoxinA 200 unit solution for injection Performing Provider: Jocelyne Page MD Performing Location: [facility] Administered by: Jocelyne Page MD on 04/02/25 08:13 Dose Route Admin Location Dispensed Lot Number Expiration Date [facility] Autom[employer] Controls Expert 175 unit IM 200 units [id number] ALLERGAN/BOTOX Total Dispensed Waste 200 units 12.5 % Comments: see HPI Assessment & Plan Assessment & Plan (1) Benign head tremor: Comment: cervical dystonia Code(s): G25.0 - Essential tremor Category: Medical (2) Cervical dystonia: Code(s): G24.3 - Spasmodic torticollis Category: Medical Plan Patient tolerated the procedure well she will aall with any side effects Orders: Orders AMB Botulinum toxin Injection Today G24.3 - Spasmodic torticollis Coding Level of Care Code Est Pt Level 1 (03206) Diagnoses Benign head tremor G25.0 Cervical dystonia G24.3 CPT Codes Botox Injection - Botox 4: 95834 - Dystonia ([id number])
== END 2025-04-02 08:08 | disposition home or self-care (01) ==
LOC: HO.HSMS 07:45
PROVIDERS: PCP Family Medicine; Visit Provider Psychiatry & Neurology Neurology
DX: G24.3 Spasmodic torticollis (principal); G25.0 Essential tremor
CPT/HCPCS: 64616

== ENCOUNTER → 2025-04-02 07:44 | Outpatient (BNVA) | payer OTHER, SELFPAY | PROVIDERS: PCP Family Medicine; Visit Provider Psychiatry & Neurology Neurology | DX: G24.3 Spasmodic torticollis (principal); G25.0 Essential tremor | CPT/HCPCS: 64616; 99211; J0585 ==

== ENCOUNTER 2025-04-16 10:49 | Outpatient (AMB) | payer OTHER, SELFPAY ==
--- NOTE | 2025-04-16 10:52 | A.OFFVIS_ITS ---
Vital Signs 04/16/25 11:07 Height 5 ft 6 in Weight 178 lb 12.718 oz BMI 28.9 BP 132/84 Blood Pressure Location Lt brachial Position Sitting Pulse 80 Pulse Source Pulse Oximeter Pulse Oximetry (%) 98 Oxygen Delivery Method Room Air Intake Visit Reasons: joint pain Intake Note: Patient presents for joint pain. Patient c/o of neck pain, LT shoulder pain, bilateral elbow pain, bilateral hand pain, lower back pain, LT knee pain and bilateral feet pain. Top of left foot is constantly in pain. Patient stated she had a LT toe episode which it stood straight up for eight hours. Patient stated she had these symptoms for five years. Patient stated she takes no medication. Allergies Penicillins Allergy (Mild, Verified 04/16/25 11:06) Hives doxycycline (DOXYCYCLINE) Allergy (Unknown, Verified 04/16/25 11:06) SWELLING Medication List - Last Reconciled 04/17/25 by Teena Saenz MD atorvastatin 40 mg PO BEDTIME 90 days magnesium oxide mg PO BEDTIME ondansetron 4 mg PO Q8H PRN 30 days HPI Comments Details: Patient is a 59-year-old female with hyperlipidemia complicated by CVA here today for evaluation of polyarthralgias Patient has a longstanding history of polyarticular joint pain involving her neck, hands, wrists, shoulders and back. Her main complaint is her hands which have gotten worse over time with increased achiness especially after a long day. She does wake up with morning stiffness that lasts all day. Has tried [id number] Tylenol but is wary of additional medications. No known family history of rheumatic disease [facility] Medical History (Updated 04/17/25 @ 12:46 by Teena Saenz MD) Osteopenia Cervical dystonia Numbness and tingling in left arm Paresthesia of left upper extremity Benign head tremor Cervical spondylosis BRCA gene mutation negative in female Potential exposure to STD High cholesterol Degenerative arthritis No pertinent past medical history Surgical History H/O foot surgery History of endometrial ablation Family History Mother Hypertension Breast cancer, Onset Age: 50 Maternal Grandmother High cholesterol Thyroid disorder Paternal Grandfather Diabetes Social History Household Members: Family Housing: House Alcohol intake: current Alcohol intake frequency: holidays/special occasions only Patient Tobacco Use Status: Former Tobacco user Tobacco use type: Cigarette e-Cigarette/Vaping Use: Never Used Second Hand Smoke Exposure: Yes service: No Current occupational status: employed Sexual orientation: Straight/Heterosexual Gender identity: Female Cognitive needs: No Hearing needs: No Vision needs: No Review of Systems Narrative Review of Systems Constitutional: Denies fever, chills, weight loss ENT: Denies vision changes, eye pain or eye redness, dental caries, dry mouth GI: Denies nausea, vomiting, diarrhea, abdominal pain, change in BM Pulm: Denies SOB, REED, hemoptysis, wheezing Cards: Denies chest pain, palpitations Skin: Denies Raynaud's, rash, nail changes, photosensitivity, SUB PLANT MANAGER: Denies headaches, weakness, paresthesias, recurrent falls MSK: as per HPI All other systems reviewed and are unremarkable except noted above Physical Exam Exam Exam: Vital signs reviewed Physical Examination CONSTITUITIONAL Patient alert and cooperative. Well appearing and in no apparent painful distress MSK Hands * Right Hand: Able to make a fist. No swelling or tenderness to palpation of the MCPs, PIPs or DIPs. * Left Hand: Able to make a fist. No swelling or tenderness to palpation of the MCPs, PIPs or DIPs. * Herbedens nodes noted bilaterally Wrists * Right Wrist: Full ROM to flexion and extension. No swelling or TTP * Left Wrist: Full ROM to flexion and extension. No swelling or TTP Elbows * Right Elbow: Full ROM. No swelling or TTP. No TTP of the medial epicondyle. No TTP of the lateral epicondyle * Left Elbow: Full ROM. No swelling or TTP. No TTP of the medial epicondyle. No TTP of the lateral epicondyle Shoulders * Right shoulder: Full ROM. No swelling noted. No TTP of the AC joint. No TTP of the subacromial bursa. No TTP of the posterior shoulder * Left shoulder: Full ROM. No swelling noted. No TTP of the AC joint. No TTP of the subacromial bursa. No TTP of the posterior shoulder Knees * Right knee: No swelling noted. No TTP of the knee joint line. No TTP of pes anserine bursa * Left knee: No swelling noted. No TTP of the knee joint line. No TTP of pes anserine bursa. * Crepitations felt bilaterally Ankles * Right ankle: Good ankle dorsiflexion and plantar flexion. No swelling. No TTP of the ankle joint * Left ankle: Good ankle dorsiflexion and plantar flexion. No swelling. No TTP of the ankle joint Feet * Right foot: Negative squeeze test * Left foot: Negative squeeze test Tender points? * No tenderness to palpation of the bilateral trapezius, supraspinatus, anterior costochondral junctions, bilateral suboccipital muscle insertions SKIN No rashes Vital Signs: Last Vital Signs Pulse 80 04/16/25 11:07 BP 132/84 04/16/25 11:07 Pulse Ox 98 04/16/25 11:07 Oxygen Delivery Method Room Air 04/16/25 11:07 BMI result Body Mass Index 28.9 Results Reviewed Results Reviewed: Laboratory Tests 09/04/24 01/11/25 08:22 09:30 WBC 9.2 RBC 4.57 Hgb 14.6 Hct 42.5 Plt Count 309 ESR 6 Sodium 142 Potassium 4.5 D Chloride 113 H Carbon Dioxide 25 BUN 12 Creatinine 0.81 AST 17 ALT 18 Laboratory Tests 09/04/24 08:22 Rheumatoid Factor < 13.0 [facility] Screen NEGATIVE DEXA 12/2024 FINDINGS: The bone mineral density of the lumbar spine is 0.959 g/cm2, corresponding to a T-score of -2.0, and a Z-score of -1.5. This is indicative of osteopenia. The bone mineral density of the left total hip is 0.746 g/cm2, corresponding to a T-score of -2.1, and a Z-score of -1.7. This is indicative of osteopenia. The bone mineral density of the left femoral neck is 0.770 g/cm2, corresponding to a T-score of -1.9, and a Z-score of -1.2. This is indicative of osteopenia. FRACTURE RISK: The FRAX index suggests a risk of major osteoporotic fracture of 8.4%, and of hip fracture 1.0%. MR C Spine 08/2024 FINDINGS: Craniocervical junction is intact. There is a mild hyperintense FLAIR bone marrow signal at C5-6. Multilevel marginal osteophyte formation and disc desiccation C3 C7 more conspicuous at C4-5 and C5-6 levels. Grade 1 retrolisthesis C6-7 and C5-6. The cervical spinal cord signal is normal. C2-3: No disc herniation. No neuroforamina stenosis. C3-4: Left-sided disc osteophyte complex formation. No cord compression. Left neuroforamina stenosis. C4-5: Broad-based disc osteophyte complex formation. No cord compression. Left neuroforamina stenosis. C5-6: Broad-based disc osteophyte complex formation. No cord compression. Left neuroforamina narrowing. C6-7: Broad-based disc osteophyte compresses formation. No cord compression. Left neuroforamina narrowing. C7-T1: No disc herniation. No neuroforamina stenosis. No prevertebral compartment hematoma mass or fluid collection. Flow-void signal within the main vessels is normal. Left vertebral artery slightly dominant. IMPRESSION: Multilevel cervical spondylosis C3-4 to C6-7 resulting in multilevel left neuroforamina stenosis. No cord compression, cord edema and or myelopathy XR Hand 08/2024 FINDINGS: RIGHT HAND/WRIST: No fracture, dislocation, or suspicious bone lesion. Normal mineralization. No periarticular osteopenia or erosions. Normal alignment. Severe osteoarthritis at the first CMC joint, with periarticular spurs and calcifications. Moderate degenerative changes at the STT joints. Joint spaces are otherwise well-preserved. No soft tissue abnormalities. LEFT HAND/WRIST: No fracture, dislocation, or suspicious bone lesion. Normal mineralization. No periarticular osteopenia or erosions. Normal alignment. Severe osteoarthritis at the first CMC joint, with periarticular spurs and calcifications. Moderate degenerative changes at the STT joints. Joint spaces are otherwise well-preserved. No soft tissue abnormalities. IMPRESSION: 1. Severe degenerative arthritis in the first CMC and STT joints bilaterally, slightly more significant on the right. 2. No evidence of inflammatory arthropathy identified. XR Shoulder 08/2024 Findings: Normal congruency of the glenohumeral joint. Mild AC joint arthrosis no undersurface spurring No fractures or bony erosions. No greater tuberosity cysts. Normal bone mineralization and soft tissues. No radiopaque foreign body. Normal visualized left chest. Impression: 1. No fracture, subluxations or dislocations left shoulder. 2. Mild AC joint arthrosis no undersurface spurring. Assessment & Plan Assessment & Plan (1) Polyarticular osteoarthritis: Code(s): M15.9 - Polyosteoarthritis, unspecified Plan: #Polyarticular OA Patient is a 59-year-old female here today for evaluation of polyarticular joint pain. Exam and review of her imaging is consistent with polyarticular osteoarthritis. Discussed several conservative measures/nonpharmacologic measures for patient to employ including paraffin wax baths, copper gloves, topical diclofenac, hand exercises. We will re-evaluate in 6 months and can consider additional therapeutic modalities at that time. Check CCP for completion Plan - Check CCP - Non pharmacologic modalities: parrafin wax, copper gloves, topical diclofenac - RTC 6 months (2) Osteopenia: Comment: DEXA 12/2024: AP Spine -2.0, Left femur neck -1.9, Left femur total -2.1 Code(s): M85.80 - Other specified disorders of bone density and structure, unspecified site Category: Medical Qualifiers: Osteopenia location: multiple sites Qualified Code(s): M85.89 - Other specified disorders of bone density and structure, multiple sites Plan: #Osteopenia Patient with osteopenia with low FRAX index No indication for treatment at this time Ensure vitamin-D supplementation Plan I spent 45 minutes reviewing the record and labs, taking a history, examining the patient, discussing the treatment plan, ordering diagnostic work up and documenting in the medical record Orders: Orders Complete Blood Count Auto Diff Today M25.50 - Pain in unspecified joint Erythrocyte Sedimentation Rate Today M25.50 - Pain in unspecified joint Vitamin D 25-OH Total Today E55.9 - Vitamin D deficiency, unspecified Cyclic Citrullinated Peptide Today M25.50 - Pain in unspecified joint Comprehensive Met. Panel Today M25.50 - Pain in unspecified joint C Reactive Protein Today M25.50 - Pain in unspecified joint Coding Level of Care Code New Pt Level 4 (30956) Diagnoses Polyarticular osteoarthritis M15.9 Osteopenia of multiple sites M85.89 Osteopenia location: multiple sites
[2025-04-16 11:07] VITALS: BP 132/84; PULSE 80; O2SAT 98; BMI 28.9
== END 2025-04-16 12:23 | disposition home or self-care (01) ==
LOC: HO.RHES 10:49
PROVIDERS: PCP Family Medicine; Visit Provider Student in an Organized Health Care Education/Training Program
DX: M15.9 Polyosteoarthritis, unspecified (principal); M85.89 Other specified disorders of bone density and structure, multiple sites
CPT/HCPCS: 99204

== ENCOUNTER → 2025-04-16 10:49 | Outpatient (BNVA) | payer OTHER, SELFPAY | PROVIDERS: PCP Family Medicine; Visit Provider Student in an Organized Health Care Education/Training Program | DX: M15.0 Primary generalized (osteo)arthritis (principal); M85.89 Other specified disorders of bone density and structure, multiple sites | CPT/HCPCS: 99202 ==

== ENCOUNTER 2025-04-20 07:08 | Outpatient (REF) | payer OTHER, SELFPAY ==
[2025-04-20 07:31] LABS: MANUAL DIFF FLAG NO
[2025-04-20 09:06] LABS: Appearance Urine Clear; Glucose Urine UA Negative (Negative); PH 6.5 (5.0-9.0); Specific Gravity - Urine 1.015 (1.005-1.025); UMIC TRIGGER UACC YES
[2025-04-20 09:06] LABS: Hematocrit 44.8 % (37.0-47.0); Hemoglobin 15.1 g/dl (12.0-16.0); Imm Gran Abs Auto 0.02 X10*3/uL (0.00-0.03); Imm Gran Pct Auto 0.3 % (0.0-0.4); Lymphocytes Absolute Auto 2.4 X10*3/uL (1.2-4.9); Mean Corpuscular HGB Conc 33.7 g/dl (31.0-35.0); Mean Corpuscular Hemoglobin 31.5 pg (27.0-33.0); Mean Corpuscular Volume 93.5 fL (80.0-98.0); NRBC Abs Auto 0.000 X10*3/uL (0.0-0.012); NRBC Pct Auto 0.0 /100WBC (0.0-0.2); Platelet Count 276 X10*3/uL (160-400); Red Blood Count 4.79 X10*6/uL (4.20-5.50); White Blood Count 7.9 X10*3/uL (4.8-10.8)
[2025-04-20 10:03] LABS: Alanine Aminotransferase 19 U/L (0-31); Albumin Level 4.6 g/dL (3.5-5.0); Alkaline Phosphatase 82 U/L (39-117); Anion Gap 11 (12-20); Aspartate Amino Transferase 23 U/L (5-31); Blood Urea Nitrogen 16 mg/dL (9-16); Calcium 9.0 mg/dL (8.4-10.2); Carbon Dioxide 25 mmol/L (22-29); Chloride 109 mmol/L (96-108); Cholesterol 271 mg/dL (<200); Estimated Glomerular Filt Rate > 60; HDL Cholesterol 52 mg/dL (>40); Potassium 4.1 mmol/L (3.3-5.1); Sodium 141 mmol/L (135-145); Total Protein 7.4 g/dL (6.5-8.0); Triglycerides 111 mg/dL (<150)
== END 2025-04-20 07:09 | disposition home or self-care (01) ==
LOC: HO.LAB 07:08
PROVIDERS: Absent Provider Family Medicine; PCP Family Medicine; Visit Provider Student in an Organized Health Care Education/Training Program
DX: Z00.00 Encounter for general adult medical examination without abnormal findings (principal); E55.9 Vitamin D deficiency, unspecified; I10 Essential (primary) hypertension; M25.50 Pain in unspecified joint
CPT/HCPCS: 36415; 80053; 80061; 81001; 81003; 82043; 82306; 82570; 84443; 85025; 85652; 86140; 86200

== ENCOUNTER 2025-04-22 08:35 | Outpatient (AMB) | payer OTHER, SELFPAY ==
--- NOTE | 2025-04-22 08:39 | A.OFFPC_ITS ---
Vital Signs 04/22/25 08:44 Height 5 ft 6 in Weight 178 lb 4 oz BMI 28.8 BP 110/70 Blood Pressure Location Lt brachial Position Sitting Respiration 12 Pulse 80 Pulse Source Pulse Oximeter Temp 98.5 F Temp Source Oral Pulse Oximetry (%) 96 Oxygen Delivery Method Room Air Intake Visit Reasons: f/u chronic conditions, labs Intake Note: patient is scheduled for lab review with pcp labs have been completed Cloth Folder Machine Required: No Allergies Penicillins Allergy (Mild, Verified 04/22/25 08:43) Hives doxycycline (DOXYCYCLINE) Allergy (Unknown, Verified 04/22/25 08:43) SWELLING Medication List - Last Reconciled 04/22/25 by Junior Cook MD atorvastatin 80 mg PO BEDTIME 90 days cholecalciferol (vitamin D3) 50 mcg PO DAILY 90 days magnesium oxide 400 mg PO BEDTIME 90 days ondansetron 4 mg PO Q8H PRN 30 days Tobacco use date assessed: 01/11/25 Dental Screening Dental Screen Date: 01/11/25 HPI f/u chronic conditions, labs HPI Details 59 y/o female presents to f/u chronic co nditions, labs. Labs drawn 04/20/25. Reviewed labs with pt. Triglycerides 111. TC 271. LDL 197. HDL 52. She is on artovastatin 40mg. Hx of CVA. Vitamin D 14.9 ng/mL. Notes pimple like abscess of skin, anterior neck. Pt notes this is changing. HPI Comments History of Present Illness Details Documentation assistance for Junior Cook MD, was provided by Shilo Archer,? Branch Customer Service Representative on 04/22/2025 at 9:04 AM EST. Reeves, Dr. Cook, have read, observed, and verified documentation. ?? [facility] Medical History (Updated 04/22/25 @ 09:04 by Shilo Archer) Osteopenia Cervical dystonia Numbness and tingling in left arm Paresthesia of left upper extremity Benign head tremor Cervical spondylosis BRCA gene mutation negative in female Potential exposure to STD High cholesterol Degenerative arthritis No pertinent past medical history Surgical History H/O foot surgery History of endometrial ablation Family History Mother Hypertension Breast cancer, Onset Age: 50 Maternal Grandmother High cholesterol Thyroid disorder Paternal Grandfather Diabetes Social History Household Members: Family Housing: House Alcohol intake: current Alcohol intake frequency: holidays/special occasions only Patient Tobacco Use Status: Former Tobacco user Tobacco use type: Cigarette e-Cigarette/Vaping Use: Never Used Second Hand Smoke Exposure: Yes service: No Current occupational status: employed Sexual orientation: Straight/Heterosexual Gender identity: Female Cognitive needs: No Hearing needs: No Vision needs: No Questionnaire Thrive Questionnaire Date Thrive assessed: 06/15/24 I am a: Patient What is your living situation today?: I choose not to answer this question Within the past 12 months, did the food you bought not last and you didn't have the money to get more?: I choose not to answer this question Within the past 12 months, did you worry whether your food would run out before you got money to buy more?: I choose not to answer this question Do you have trouble paying for medicines?: I choose not to answer this question Do you have trouble getting transportation to medical appointments?: I choose not to answer this question Do you have trouble paying your heating and electricity bill?: I choose not to answer this question Do you have trouble taking care of your child, family member or friend?: I choose not to answer this question Do you have trouble with day-to-day activities such as bathing, preparing meals, shopping, managing finances, etc.?: I choose not to answer this question Are you currently unemployed and looking for a job?: I choose not to answer this question Are you interested in more education?: I choose not to answer this question Please select the resources that you would like help with: None Currently or been in a relationship where the following occur: I choose not to answer THRIVE Score: 0 JUAN-7 AMB Questionnaire JUAN-7 Date JUAN - 7 assessed: 08/30/24 Source: Developed by Drs. Suresh Jean, Yulia Draper, Abhijeet Tobias and colleagues, with an educational muriel from [employer] Review of Systems Const Denies chills, Denies fatigue, Denies fever(s), Denies headache(s) and Denies weakness ENT Denies dizziness and Denies headache(s) Card Denies dyspnea Resp Denies cough, Denies dyspnea, Denies wheezing and Denies other (shortness of breath) Musc Denies numbness and Denies tingling Neuro Denies dizziness, Denies headache(s), Denies numbness, Denies tingling and Denies weakness Psych Denies anxiety and Denies depression Endo Denies fatigue Aller/Immun Denies wheezing Physical exam (Primary Care) Vital Signs: Last Vital Signs Temp 98.5 F 04/22/25 08:44 Pulse 80 04/22/25 08:44 Resp 12 04/22/25 08:44 BP 110/70 04/22/25 08:44 Pulse Ox 96 04/22/25 08:44 Oxygen Delivery Method Room Air 04/22/25 08:44 BMI result Body Mass Index 28.8 Tobacco/Smoking Status: Tobacco use Status Tobacco use date assessed 01/11/25 04/22/25 08:39 Patient Tobacco Use Status Former Tobacco user 04/22/25 08:39 Tobacco use type Cigarette 04/22/25 08:39 e-Cigarette/Vaping Use Never Used 04/22/25 08:39 Thrive Assessment: Date of Thrive Assessment Date Thrive assessed 06/15/24 04/22/25 08:39 Currently or been in a relationship where the following occur: I choose not to answer Const General: well developed; No acute distress Nutritional Appearance: well nourished Orientation/consciousness: patient oriented x3 HENMT Head: Yes normocephalic and Yes atraumatic Eyes General: appearance normal, both eyes and all related structures Pupils: Equal, round and reactive pupils present EOM: EOMs intact bilaterally Resp Effort & Inspection: normal respiratory effort Auscultation: clear to auscultation bilaterally Cardio Rate: regular rate Rhythm: regular rhythm Heart sounds: S1 normal heart sound present, S2 normal heart sound present, no gallops, no murmurs and no rubs Neuro General: patient oriented x3 and gait normal Cranial nerves: Yes Equal, round and reactive pupils present Psych Affect: normal affect Coding Level of Care Code Est Pt Level 4 (80890) Diagnoses Hyperlipidemia E78.5 Low vitamin D level R79.89 History of CVA (cerebrovascular accident) Z86.73 Skin abscess L02.91 Assessment & Plan Assessment & Plan (1) Hyperlipidemia: Code(s): E78.5 - Hyperlipidemia, unspecified Category: Medical Plan: Lipids are again very high. Patient says that she has been out of the medication and needs a refill. Goal for LDL cholesterol is less than 70 as she has a history of CVA Will send a script for atorvastatin at increased dose; 80 mg daily. Will recheck lipids prior to next visit in a few months. (2) Low vitamin D level: Code(s): R79.89 - Other specified abnormal findings of blood chemistry Category: Medical Plan: Vitamin-D level significantly low Sending a script for vitamin-D and we can recheck this prior to next visit as well (3) History of CVA (cerebrovascular accident): Code(s): Z86.73 - Personal history of transient ischemic attack (TIA), and cerebral infarction without residual deficits Category: Medical Plan: As above, history of CVA and working on getting lipids down below 70 Otherwise stable Will continue to monitor (4) Skin abscess: Code(s): L02.91 - Cutaneous abscess, unspecified Category: Medical Plan: Pimple-like abscess of skin on anterior neck. Patient says this is changing Surrounding tissues no longer appear infected. Referred to Dermatology Orders: Orders Vitamin D 25-OH Total Today E55.9 - Vitamin D deficiency, unspecified, Z86.73 - Personal history of transient ischemic attack (TIA), and cerebral infarction without residual deficits Lipid Panel Today Z00.00 - Encounter for general adult medical examination without abnormal findings, Z86.73 - Personal history of transient ischemic attack (TIA), and cerebral infarction without residual deficits Comprehensive Shannon. Panel Fast Today Z00.00 - Encounter for general adult medical examination without abnormal findings, Z86.73 - Personal history of transient ischemic attack (TIA), and cerebral infarction without residual deficits Referrals Dermatology Referral L02.91 - Cutaneous abscess, unspecified Medications: New magnesium oxide 400 mg PO BEDTIME 90 caps 2RF 90 days Changed From atorvastatin 40 mg PO BEDTIME 90 days 90 tabs 3RF To atorvastatin 80 mg PO BEDTIME 90 tabs 3RF 90 days
[2025-04-22 08:44] VITALS: BP 110/70; PULSE 80; RESP 12; TEMP 36.9; O2SAT 96; BMI 28.8
== END 2025-04-22 09:17 | disposition home or self-care (01) ==
LOC: HO.HMCFM 08:35
PROVIDERS: PCP Family Medicine; Visit Provider Family Medicine
DX: E78.5 Hyperlipidemia, unspecified (principal); R79.89 Other specified abnormal findings of blood chemistry; Z86.73 Personal history of transient ischemic attack (TIA), and cerebral infarction without residual deficits; L02.91 Cutaneous abscess, unspecified

== ENCOUNTER → 2025-04-22 08:35 | Outpatient (BNVA) | payer OTHER, SELFPAY | PROVIDERS: PCP Family Medicine; Visit Provider Family Medicine | DX: R79.89 Other specified abnormal findings of blood chemistry (principal); E78.5 Hyperlipidemia, unspecified; L02.91 Cutaneous abscess, unspecified; Z86.73 Personal history of transient ischemic attack (TIA), and cerebral infarction without residual deficits | CPT/HCPCS: 99212 ==